=== PATIENT | male | born 1950 | race Caucasian/White ===

== ENCOUNTER 2024-06-12 13:41 | Observation (INO) ==
--- NOTE | 2024-06-12 14:17 | CT Scan Report ---
CT OF THE HEAD WITHOUT CONTRAST CLINICAL HISTORY: visual disturbance COMPARISON STUDY: No previous studies for comparison. CT DOSE: 625.8 mGy.cm TECHNIQUE: Helical axial images of the head were obtained without IV contrast. Automated exposure con trol was utilized for the study. A dose lowering technique was utilized adhering to the principles o f ALARA. FINDINGS: No acute intracranial hemorrhage, midline shift or mass effect is present. The ventricular system is unremarkable. The basal cisterns are patent. No extra-axial collections are present. There are no findings to suggest acute dural sinus thrombosis or acute territorial infarct. No significant calvarial abnormalities are present. Visualized portions of the sinuses and mastoid air cells are yamile ar. IMPRESSION: No acute intracranial findings. ACT 112: Negative or not required by law. Electronically signed by: Kamlesh Huynh M.D. 06/12/2024 2:15 PM
--- NOTE | 2024-06-12 14:29 | Emergency Department Note ---
Impression & Plan Visual disturbance, Stenosis of intracranial vessel ED Provider Note CHIEF COMPLAINT: Visual disturbance HISTORY OF PRESENTING ILLNESS: This 74-year-old male patient presents to the emergency department for evaluation of a visual disturbance. The patient was sent to the ER from his eye doctor for further imaging. The patient states that for the past 2 days he has only been able to see out of the bottom half of his left eye. He also feels like his left upper eyelid feels heavy. He has been working "round the clock" for the past 3 months. 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 He states that he works with things close to his face and has not been sleeping much recently. He has also been under a lot of stress from his relationship recently. He also thinks he may have bumped his head at one point, but denies any other known trauma. He wears different reader glasses depending on what distance he is looking, but not prescription glasses. He does not wear contacts. His pupils were dilated at the eye doctors office prior to arrival. He is not on any blood thinners. No previous strokes. He denies any trouble talking or walking. Denies any weakness of his extremities. Denies any numbness or tingling. Denies any facial droop or other neurological symptoms. However, approximately 1 year ago he felt unsteady on his feet and developed dizziness, nausea, and vomiting. However, no symptoms like that currently. Per the records from the [facility] the patient was found to have papilledema and optic nerve edema of the left eye. The patient was referred to the ER for stat CT scan/MRI to rule out any compressive lesion and they also recommended a full stroke workup with carotid ultrasound to rule out any vascular issues. The patient was also set up with the [facility] for retinal evaluation on 06/17/24. REVIEW OF SYSTEMS: See HPI for pertinent positives and pertinent negatives. ALLERGIES: NKDA MEDICATIONS: Mounjaro, Simvastatin PAST MEDICAL HISTORY: Diabetes, High Cholesterol PHYSICAL EXAM: VITALS: Vitals are noted on the nurse's note and reviewed by myself. GENERAL: No acute distress, non-diaphoretic. SKIN: No erythema, edema, or warmth of the face or eyelids. Capillary reflex less than 2 seconds. HEAD: No scalp tenderness. No step-offs felt. EARS: Bilateral external auditory canals clear. Bilateral tympanic membranes pearly campos without erythema or effusion. No hemotympanum. No asencio sign. No mastoid tenderness. EYES: Visual acuity 20/100 in the left eye and 20/70 in the right eye without correction. The patient's pupils are currently fixed and dilated from the eyedrops at the eye doctor. Extraocular movements intact without pain. No nystagmus. Conjunctivae without injection or discharge. Sclerae without icterus. NOSE: Patent, turbinates without inflammation or discharge. No sinus tenderness. No septal hematoma or bleeding. FACE: No facial bone tenderness. Full range of motion of the jaw without tenderness. No facial droop noted. However, the patient feels like his left eyelid feels heavy. MOUTH: Mucous membranes moist. Uvula midline. Airway patent. Tongue does not deviate. NECK: Supple without nuchal rigidity. Cervical spine is nontender. Full range of motion of the neck without tenderness and normal strength. HEART: Regular rate and rhythm without murmurs gallops or rubs. LUNGS: Clear to auscultation bilaterally without wheezes, rales or rhonchi. No retractions or accessory muscle use. No chest wall tenderness. ABDOMEN: Positive bowel sounds x 4. Normal tympanic percussion. Soft, nontender to palpation. No masses or hepatosplenomegaly. No guarding or rebound tenderness. No focal RLQ or LLQ tenderness. MUSCULOSKELETAL: No tenderness of the thoracic or lumbar spine or paraspinal muscles. Strength 5/5 and equal bilaterally in the upper and lower extremities. Peripheral pulses 2+ and equal in the bilateral upper and lower extremities. NEURO: Patient was alert and oriented to person place and time. Normal mental status exam. Normal sensation to light and sharp touch. Negative Romberg and pronator drift. Cerebellar function intact. No focal neurological deficits. DIFFERENTIAL DIAGNOSIS: Differential diagnosis includes conjunctivitis, trauma, corneal abrasion, hyphema, glaucoma, iritis, uveitis, corneal ulcer, dendrite, CRAO, CRVO, vitreous detachment, retinal detachment, CVA, Lyme disease, TIA, as well as other pathologies. ED COURSE AND MEDICAL DECISION MAKING: MEDICATIONS GIVEN: Aspirin 324 mg p.o. MONITOR: Continuous runner on: Order was placed for continuous runner on. Patient was placed on the runner on and continuous pulse ox. Patient was noted to be in normal sinus rhythm at an initial rate of 70 bpm per my interpretation. EKG: EKG was interpreted by myself as normal sinus rhythm at 74 bpm with no acute ST or T wave changes. INTERPRETATION OF LABS: I interpreted the labs with full lab results as below in the lab section of this note. Pertinent lab results discussed in the MDM section below. INTERPRETATION OF IMAGING: Imaging studies were interpreted by myself and read by radiology as per the imaging section of this note. CT scan of the head without contrast showed no acute intracranial findings. CTA of the neck with IV contrast showed atherosclerosis without aneurysm, dissection, high-grade stenosis, or arterial occlusion. CTA of the head with IV contrast showed moderate to severe multifocal stenoses within the intracranial vessels which are most pronounced within the left posterior inferior cerebellar artery. No large vessel occlusion. No intracranial aneurysm. EXTERNAL RECORDS REVIEWED: I reviewed the office visit notes from the [facility] as summarized above. CONSULTATIONS: Dr. Butler of neurology CRITICAL CARE: I have personally spent 60 minutes of critical care time in the direct management of this patient. This includes bedside care, interpretation of diagnostic studies, and testing, discussion with consultants, patient, and family members, and other required patient management activities. This 60 minutes is in excess of all separately billable procedures. [facility] SUMMARY: I examined the patient. The patient states that he has not had vision in the upper portion of his left eye for the past 2 days. The patient also feels like his left eyelid feels heavy, but he does not have any obvious facial droop on exam. The patient was seen by the [facility] today and found to have optic nerve swelling and papilledema. He was referred to the ER for a stat CT scan/MRI to rule out any compressive lesion as well as a full stroke workup including carotid ultrasound. An IV lock was placed and labs were drawn. The patient declined any medication for his symptoms as he stated he had no symptoms other than the vision loss. I reviewed the records from the [facility]. The patient does not have any strokelike symptoms on exam other than the vision loss. The vision loss started 2 days ago. White blood cell count normal at 7.91. Hemoglobin normal at 16.1. Platelet count normal at 186. Coags normal. Glucose 162, but CMP otherwise normal. TSH normal. High-sensitivity troponin normal. ESR and CRP were normal. CT scan of the head without contrast showed no acute intracranial findings. CTA of the neck with IV contrast showed atherosclerosis without aneurysm, dissection, high-grade stenosis, or arterial occlusion. CTA of the head with IV contrast showed moderate to severe multifocal stenoses within the intracranial vessels which are most pronounced within the left posterior inferior cerebellar artery. No large vessel occlusion. No intracranial aneurysm. I had a meaningful discussion about this patient with Dr. Echavarria who agrees with my assessment and the treatment plan. I spoke to Dr. Butler of neurology due to the abnormal CTA findings. Based on his symptoms, Dr. Butler was concern for possible branch retinal artery occlusion, ischemic optic neuropathy, or arteritis/vasculitis affecting the optic nerve. However, it appears that the patient had a retinal scan done by the eye doctor which did not appear to show a branch retinal artery occlusion. Dr. Butler recommended starting the patient on aspirin for possible strokelike event. He recommended the patient be admitted to undergo a full stroke workup along with MRI of the brain and MRI of the orbits. He also recommended getting an CRP and sed rate to evaluate for possible vasculitis/arteritis. He recommended that if the ESR/CRP were elevated, the patient should be started on high-dose steroids and have a temporal artery biopsy. However, if ESR and CRP were normal, the patient did not likely need steroids. Dr. Butler did not feel that I needed to reach out to ophthalmology urgently since the patient was seen by the [facility] prior to his arrival in the ER and the patient has an appointment with [facility] for retinal evaluation next week. I spoke with the on-call hospitalist who agreed to admit the patient for further evaluation and treatment. Please refer to their dictation for further details. The patient's care was transferred in stable condition. DIAGNOSIS: Loss of vision Stenosis within the intracranial vessels Past Med/Surg History Problem List (Updated 06/12/24 @ 19:51 by Monica Infante PA-C) Stenosis of intracranial vessel (Acute) Hypertensive urgency Visual disturbance (Acute) Medical History Type II diabetes mellitus Hyperlipidemia HTN (hypertension) Carpal tunnel syndrome, left Social History Smoking Status: Never smoker Preferred Language: Yakut Feels Safe at Home: Yes Allergies Allergies Allergy/AdvReac Type Severity Reaction Status Date / Time No Known Allergies Allergy Verified 12/18/24 14:47 Home Meds Home Medications Medication Instructions Recorded Confirmed aspirin 81 mg capsule 81 mg PO DAILY 06/12/24 06/12/24 atorvastatin 40 mg tablet 40 mg PO DAILY 06/12/24 06/12/24 sildenafil 100 mg tablet 50 mg PO DAILY PRN Erectile 06/12/24 06/12/24 Dysfunction tirzepatide 5 mg/0.5 mL 5 mg subcut .WEEKLY 06/12/24 06/12/24 subcutaneous pen injector (Nikos) Results & Data (ED) Vital Signs Vital Signs - 24 hr 06/12/24 13:49 06/12/24 17:11 Temperature 36.5 C Temperature Source Skin Pulse Rate 75 Pulse Rate [Finger] 73 Respiratory Rate 18 18 Respiratory Effort / Characteristics Non-Labored Spontaneous Respiratory Depth Normal Respiratory Pattern Regular Blood Pressure 168/88 H Blood Pressure [Left Arm] 185/102 H Blood Pressure Mean 114 Blood Pressure Mean [Left Arm] 129 Blood Pressure Position [Left Arm] Semi-fowlers Pulse Oximetry 99 98 Oxygen Delivery Method Room Air Room Air Sepsis Recent Fever Within 48 Hours No Sepsis New/Unexplained Change in Mental Status N/A Sepsis Action Taken by Nursing No Action Required Laboratory Data 06/12/24 14:39 06/12/24 14:39 Lab Results 06/12/24 Range/Units 14:39 WBC 7.91 (4.8-10.8) K/ul RBC 5.43 (4.70-6.10) M/uL Hgb 16.1 (14.0-18.0) g/dl Hct 45.6 (42.0-52.0) % MCV 84.0 (80.0-100.0) fL MCH 29.7 (25.0-34.0) pg MCHC 35.3 (32.0-36.0) g/dL RDW Std Deviation 39.1 (36.4-46.3) fL RDW Coeff of [place] 12.7 (11.5-14.5) % Plt Count 186 (130-400) K/uL MPV 9.1 L (9.4-12.4) fL Immature Gran % (Auto) 0.4 % Neut % (Auto) 58.5 % Lymph % (Auto) 31.1 % Rock % (Auto) 8.2 % Eos % (Auto) 1.5 % Baso % (Auto) 0.3 % Neut # (Auto) 4.63 (1.40-6.50) K/uL Lymph # (Auto) 2.46 (1.20-3.40) K/uL Rock # (Auto) 0.65 H (0.11-0.59) K/uL Eos # (Auto) 0.12 (0.00-0.50) K/uL Baso # (Auto) 0.02 (0.00-0.20) K/uL Immature Gran # (Auto) 0.03 (0.01-0.20) K/uL ESR 4 (0-20) mm/hr PT 10.4 (9.0-12.0) Seconds INR 1.0 (0.9-1.1) APTT 27 (21-31) Seconds PTT Ratio 1.0 Sodium 138 (136-145) mmol/L Potassium 3.9 (3.5-5.1) mmol/L Chloride 104 (98-107) mmol/L Carbon Dioxide 28 (21-32) mmol/L Anion Gap 6 (3-11) BUN 19 (6-23) mg/dl Creatinine 1.13 (0.6-1.4) mg/dl Est Cr Clr Drug Dosing 75.3 ml/min eGFR 69.06 BUN/Creatinine Ratio 16.8 (10-20) Glucose 162 H (70-99(Fasting)) mg/dl Calcium 9.0 (8.6-10.3) mg/dl Magnesium 1.8 (1.7-2.4) mg/dl Total Bilirubin 0.7 (0.2-1.0) mg/dl AST 20 (13-39) U/L ALT 18 (7-52) U/L Alkaline Phosphatase 69 (34-104) U/L Troponin I High Sens 5.7 (0-20) pg/ml C-Reactive Protein < 0.50 (0-0.5) mg/dl Total Protein 6.9 (6.0-8.3) gm/dl Albumin 4.4 (3.4-5.0) gm/dl Globulin 2.5 (2.5-4.0) gm/dl Albumin/Globulin Ratio 1.8 (0.9-2) TSH 1.882 (0.300-4.500) uIu/ml Administered Medications Discontinued Medications Amlodipine Besylate (Amlodipine Besylate 5 Mg Tab) 5 mg PO NOW ONE Stop: 06/12/24 19:17 Last Admin: 06/12/24 20:00 Dose: 5 mg Documented By: CEF Aspirin (Aspirin Chew 324 Mg) 324 mg PO NOW STA Stop: 06/12/24 17:03 Last Admin: 06/12/24 17:10 Dose: 324 mg Documented By: CEF Ioversol (Optiray 320 125ml) 115 ml IV ONCE ONE Stop: 06/12/24 15:49 Last Admin: 06/12/24 15:48 Dose: 115 ml Documented By: JAYCE Imaging Data Radiologist's Impression: Head CT 06/12/24 13:55 CT OF THE HEAD WITHOUT CONTRAST CLINICAL HISTORY: visual disturbance COMPARISON STUDY: No previous studies for comparison. CT DOSE: 625.8 mGy.cm TECHNIQUE: Helical axial images of the head were obtained without IV contrast. Automated exposure control was utilized for the study. A dose lowering technique was utilized adhering to the principles of ALARA. FINDINGS: No acute intracranial hemorrhage, midline shift or mass effect is present. The ventricular system is unremarkable. The basal cisterns are patent. No extra-axial collections are present. There are no findings to suggest acute dural sinus thrombosis or acute territorial infarct. No significant calvarial abnormalities are present. Visualized portions of the sinuses and mastoid air cells are clear. IMPRESSION: No acute intracranial findings. ACT 112: Negative or not required by law. Electronically signed by: Kamlesh Huynh M.D. 06/12/2024 2:15 PM Head CTA 06/12/24 14:47 CTA ANGIOGRAPHY OF THE HEAD CLINICAL HISTORY: Vision loss, left optic nerve swelling COMPARISON STUDY: Head CT performed earlier today. TECHNIQUE: Helical axial images of the head were obtained following uneventful intravenous administration of 115 cc of Optiray. Sagittal and coronal reconstructions were viewed as well as maximal intensity projections on an independent 3-D workstation. Automated exposure control was utilized for the study. A dose lowering technique was utilized adhering to the principles of ALARA. FINDINGS: No acute intracranial hemorrhage, midline shift or mass effect is present. Ventricular system is normal. Basal cisterns are patent. There are no extra axial collections. Moderate to severe multifocal stenoses within the intracranial circulation are present. There is moderate stenosis of the right supraclinoid ICA due to mixed calcified and noncalcified plaque. There is mild stenosis of the left supraclinoid ICA. There is moderate to severe stenosis at the origin of the left posterior cerebral artery as well as severe stenoses within the left posterior inferior cerebellar artery. Moderate stenosis of the intracranial portion of the left vertebral artery due to calcified plaque is noted. No large vessel occlusion is present. There is no intracranial aneurysm. IMPRESSION: 1. Moderate to severe multifocal stenoses within the intracranial vessels, as detailed above. These are most pronounced within the left posterior inferior cerebellar artery. 2. No large vessel occlusion. No intracranial aneurysm. ACT 112: Negative or not required by law. Electronically signed by: Kamlesh Huynh M.D. 06/12/2024 4:13 PM Neck CTA 06/12/24 14:47 CT angio neck with con CLINICAL HISTORY: 74 years-old Male with Vision loss, left optic nerve swelling. Acute stroke like symptoms with left-sided vision loss COMPARISON STUDY: Head CT of same day TECHNIQUE: Following the IV administration of 115 of Optiray, CT angiogram of the neck was performed from the aortic arch to the skull base. Images are reviewed in the axial, sagittal, and coronal planes. 3-D MIPS images are created and assessed. IV contrast was administered without complication. All measurements were calculated based on NASCET criteria. A dose lowering technique was utilized adhering to the principles of ALARA. CT DOSE: 477.86 mGy.cm FINDINGS: Three-vessel morphology with vascular arch. Patency of the innominate and imaged subclavian arteries. There is atherosclerotic plaque of the carotid bulbs causing no significant stenosis. The common and and internal carotid arteries are patent. Dominant left vertebral artery. There is atherosclerosis involving the V4 segment left vertebral artery causing moderate stenosis. The developmentally diminutive right vertebral artery is patent, also with atherosclerosis in the V4 segment causing mild stenosis. Lung apices are clear without pneumothorax. Bleb formation of the left lung apex. Atrophy of the submandibular glands. No acute fracture. 2 cm hypodense nodule of the inferior thyroid isthmus with marginal calcifications. IMPRESSION:Atherosclerosis without aneurysm, dissection, high-grade stenosis or arterial occlusion. ACT 112: Negative or not required by law. The above report was generated using voice recognition software. It may contain grammatical, syntax or spelling errors. Electronically signed by: Phoenix Post M.D. 06/12/2024 4:02 PM Discharge Plan Visit Data Chief Complaint: Visual Disturbance Stated Complaint: MRI, DOC REF, LT EYE P, VIS DISTURBANCE/TOP BLACK ED Provider: Coty Echavarria ED Midlevel Provider: Monica Infante Discharge Problem: Visual disturbance, Stenosis of intracranial vessel Patient Disposition: Admitted As Inpatient Condition: Good Discharge Instructions Interventions: ED Discharge Assessment Last Done: 06/12/24 20:01
[2024-06-12 15:07] LABS: Basophils # (auto) 0.02 K/uL (0.00-0.20); Basophils % (auto) 0.3 %; Eosinophils # (auto) 0.12 K/uL (0.00-0.50); Eosinophils % (auto) 1.5 %; Hematocrit (blood only) 45.6 % (42.0-52.0); Hemoglobin 16.1 g/dl (14.0-18.0); Immature Granulocytes # (auto) 0.03 K/uL (0.01-0.20); Immature Granulocytes % (auto) 0.4 %; Lymphocytes # (auto) 2.46 K/uL (1.20-3.40); Lymphocytes % (auto) 31.1 %; Mean Corpuscular Hemoglobin 29.7 pg (25.0-34.0); Mean Corpuscular Hgb Conc 35.3 g/dL (32.0-36.0); Mean Platelet Volume 9.1 fL (9.4-12.4); Monocytes # (auto) 0.65 K/uL (0.11-0.59); Monocytes % (auto) 8.2 %; Neutrophils # (auto) 4.63 K/uL (1.40-6.50); Neutrophils % (auto) 58.5 %; Platelet Count 186 K/uL (130-400); RDW Coefficient of Variation 12.7 % (11.5-14.5); RDW Standard Deviation 39.1 fL (36.4-46.3); Red Blood Count 5.43 M/uL (4.70-6.10); White Blood Count 7.91 K/ul (4.8-10.8)
[2024-06-12 15:17] LABS: Alanine Aminotransferase 18 U/L (7-52); Albumin Globulin Ratio 1.8 (0.9-2); Albumin Level 4.4 gm/dl (3.4-5.0); Alkaline Phosphatase 69 U/L (34-104); Anion Gap 6 (3-11); Aspartate Aminotransferase 20 U/L (13-39); BUN Creatinine Ratio 16.8 (10-20); Bilirubin,Total 0.7 mg/dl (0.2-1.0); Blood Urea Nitrogen 19 mg/dl (6-23); Carbon Dioxide 28 mmol/L (21-32); Chloride 104 mmol/L (98-107); Creatinine Clr Calc Pharmacy 75.3 ml/min; Globulin 2.5 gm/dl (2.5-4.0); Glucose 162 mg/dl (70-99(Fasting)); Magnesium 1.8 mg/dl (1.7-2.4); Potassium 3.9 mmol/L (3.5-5.1); Sodium 138 mmol/L (136-145); Total Protein 6.9 gm/dl (6.0-8.3)
[2024-06-12 15:21] LABS: Troponin I High Sensitivity 5.7 pg/ml (0-20)
[2024-06-12 15:28] LABS: Partial Thromboplastin Time 27 Seconds (21-31); Prothrombin Time 10.4 Seconds (9.0-12.0)
[2024-06-12 15:31] LABS: Thyroid Stimulating Hormone 1.882 uIu/ml (0.300-4.500)
[2024-06-12] MEDS: OPTIRAY 320 125ml IV ONE (15:48)
--- NOTE | 2024-06-12 16:03 | CT Scan Report ---
CT angio neck with con CLINICAL HISTORY: 74 years-old Male with Vision loss, left optic nerve swelling. Acute stroke like symptoms with left-sided vision loss COMPARISON STUDY: Head CT of same day TECHNIQUE: Following the IV administration of 115 of Optiray, CT angiogram of the neck was performed from the aortic arch to the skull base. Images are reviewed in the axial, sagittal, and coronal plane s. 3-D MIPS images are created and assessed. IV contrast was administered without complication. All m easurements were calculated based on NASCET criteria. A dose lowering technique was utilized adherin g to the principles of ALARA. CT DOSE: 477.86 mGy.cm FINDINGS: Three-vessel morphology with vascular arch. Patency of the innominate and imaged subclavian arteries. There is atherosclerotic plaque of the carotid bulbs causing no significant stenosis. The common and and internal carotid arteries are patent. Dominant left vertebral artery. There is atherosclerosis i nvolving the V4 segment left vertebral artery causing moderate stenosis. The developmentally diminuti ve right vertebral artery is patent, also with atherosclerosis in the V4 segment causing mild stenosi s. Lung apices are clear without pneumothorax. Bleb formation of the left lung apex. Atrophy of the subm andibular glands. No acute fracture. 2 cm hypodense nodule of the inferior thyroid isthmus with jose alejandro nal calcifications. IMPRESSION:Atherosclerosis without aneurysm, dissection, high-grade stenosis or arterial occlusion. ACT 112: Negative or not required by law. The above report was generated using voice recognition software. It may contain grammatical, syntax o r spelling errors. Electronically signed by: Phoenix Post M.D. 06/12/2024 4:02 PM
--- NOTE | 2024-06-12 16:16 | CT Scan Report ---
CTA ANGIOGRAPHY OF THE HEAD CLINICAL HISTORY: Vision loss, left optic nerve swelling COMPARISON STUDY: Head CT performed earlier today. TECHNIQUE: Helical axial images of the head were obtained following uneventful intravenous administr ation of 115 cc of Optiray. Sagittal and coronal reconstructions were viewed as well as maximal inten sity projections on an independent 3-D workstation. Automated exposure control was utilized for the study. A dose lowering technique was utilized adhering to the principles of ALARA. FINDINGS: No acute intracranial hemorrhage, midline shift or mass effect is present. Ventricular syst em is normal. Basal cisterns are patent. There are no extra axial collections. Moderate to severe mul tifocal stenoses within the intracranial circulation are present. There is moderate stenosis of the r ight supraclinoid ICA due to mixed calcified and noncalcified plaque. There is mild stenosis of the l eft supraclinoid ICA. There is moderate to severe stenosis at the origin of the left posterior cerebr al artery as well as severe stenoses within the left posterior inferior cerebellar artery. Moderate s tenosis of the intracranial portion of the left vertebral artery due to calcified plaque is noted. No large vessel occlusion is present. There is no intracranial aneurysm. IMPRESSION: 1. Moderate to severe multifocal stenoses within the intracranial vessels, as detailed above. These a re most pronounced within the left posterior inferior cerebellar artery. 2. No large vessel occlusion. No intracranial aneurysm. ACT 112: Negative or not required by law. Electronically signed by: Kamlesh Huynh M.D. 06/12/2024 4:13 PM
[2024-06-12] MEDS: ASPIRIN CHEW 324 MG PO STA (17:10)
[2024-06-12 17:19] LABS: C Reactive Protein < 0.50 mg/dl (0-0.5)
--- NOTE | 2024-06-12 17:23 | History & Physical Report ---
Date of Service June 12, 2024 Assessment & Plan (1) Visual disturbance: (2) Hypertensive urgency: Plan Quinton Day is a 74-year-old male with past medical history significant for HTN, HLD, DM type II, CKD stage III and bilateral sensorineural hearing loss who presented to the ED on 06/12/2024 via referral from [facility] in [place], [place] for further evaluation of vision loss in the superior aspect of his left eye. Visual Disturbance of Left Eye, C/F Possible Subacute CVA: Patient has been experiencing vision loss in the superior aspect of his left eye for approximately the last week or so per his account. Patient was seen at [facility] earlier today and was noted to have optic nerve edema of his left eye during his examination therefore he was referred to the ED for stat head CT as well as MRIs of both the brain and orbits to rule out any compressive lesions. It was also recommended that the patient undergo a complete stroke workup. Head CT with no evidence of acute intracranial findings. Head CTA noted moderate to severe multifocal stenoses within the intracranial vessels, most pronounced within the left posterior inferior cerebellar artery. Neck CTA revealed atherosclerotic plaque of the carotid bulbs causing no significant stenosis, atherosclerosis involving the V4 segment of the left vertebral artery causing moderate stenosis and atherosclerosis within the V4 segment of the right vertebral artery causing mild stenosis. MRIs of the brain and orbits pending. Neurology consult pending. S/p 324mg ASA in the ED which was advised to be given by the on-call [place] neurologist, Dr. Butler; also advised to continue ASA 81mg daily. No need for emergent ophthalmology consult at this time per discussion with the ED provider. Check lipid panel and Hgb A1c in AM. Resting echo pending as part of the complete str mesha workup protocol. Hypertensive Urgency: Not currently on any antihypertensives. BP elevated at 168/88 on admission, repeat BP 192/109 at 19:11. Ordered 5mg dose of po aml odipine to be given in the ED. Will start on po 5mg amlodipine daily beginning tomorrow AM. Continue close BP monitoring. May require additional antihypertensives depending on his BP trend overnight. 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 BSG checks ACHS. CC/HH diet. Most recent Hgb A1c was 7.6% about 2 months ago. Will repeat Hgb A1c in AM. Other Chronic Medical Conditions: HLD - Continue atorvastatin, ASA as per above. DVT Prophylaxis: SQ Heparin Code Status: FULL CODE PCP: Nate Crowder MD Disposition: Admit to Med/Telemetry Patient seen in collaboration with Dr. Alexandre. Please see addendum. I spent a total of 55 minutes coordinating, documenting, and providing care for this patient excluding time spent in the performance of separately billed services. This included personally reviewing all current laboratories and imaging studies, medical reconciliation, outpatient chart review and discussion with specialists. This chart was completed in part utilizing Speech Voice Recognition Software. Grammatical errors, random word insertions, pronoun errors, and incomplete sentences are an occasional consequence of this system due to software limitations, ambient noise, and hardware issues. Any formal questions or concerns about the content, text, or information contained within the body of this dictation should be directly addressed to the provider for clarification. History of Present Illness Chief Complaint: Referred by [facility]: Visual Disturbance Primary Care Provider: Nate Crowder MD Quinton Day is a 74-year-old male with past medical history significant for HTN, HLD, DM type II, CKD stage III and bilateral sensorineural hearing loss who presented to the ED on 06/12/2024 via referral from [facility] in [place], [place] for further evaluation of vision loss in the superior aspect of his left eye. History obtained from the patient, documentation provided by [facility] and associated chart review. Patient seen at bedside in the ED with Dr. Alexandre. Patient is somewhat of a poor historian. Patient has been experiencing vision loss in the superior aspect of his left eye for approximately the last week or so per his account. Patient was seen at [facility] earlier today and was noted to have optic nerve edema of his left eye during his examination therefore he was referred to the ED for stat head CT as well as MRIs of both the brain and orbits to rule out any compressive lesions. It was also recommended that the patient undergo a complete stroke workup per the head neck surgeon who saw him in the clinic, Dr. Wells. Patient reports that he typically does not wear glasses however he does use reading glasses or "cheaters" intermittently. He denies any visual disturbances in the right eye. He did notice however that his vision appeared to be somewhat blurry in both eyes during our conversation however he had just had his eyes di lated in the clinic prior to arrival. Patient actually drove himself to the ED. He reports that he has been feeling a little bit unsteady on his feet over the past month or so but otherwise offer no other acute complaints. No prior smoking history. No known history of prior strokes. Allergies Allergy/AdvReac Type Severity Reaction Status Date / Time No Known Allergies Allergy Verified 06/12/24 14:47 Home Medications Medication Instructions Recorded Confirmed Type aspirin 81 mg capsule 81 mg PO DAILY 06/12/24 06/12/24 History atorvastatin 40 mg tablet 40 mg PO DAILY 06/12/24 06/12/24 History sildenafil 100 mg tablet 50 mg PO DAILY PRN Erectile 06/12/24 06/12/24 History Dysfunction tirzepatide 5 mg/0.5 mL 5 mg subcut .WEEKLY 06/12/24 06/12/24 History subcutaneous pen injector (Papitounmaria de jesusro) Past Med/Surg History Problem List (Updated 06/12/24 @ 19:17 by Barb Nevarez PA-C) Hypertensive urgency Visual disturbance Medical History Type II diabetes mellitus Hyperlipidemia HTN (hypertension) Carpal tunnel syndrome, left Social History Smoking Status: Never smoker Preferred Language: Yemeni Feels Safe at Home: Yes Review of Systems Review of Systems: At least ten systems reviewed and negative, except as noted in the HPI. Physical Exam Physical Exam: Please refer to Dr. Alexandre's addendum for physical examination findings. Results & Data Results & Data Vital Signs (Past 12 Hours) Vital Signs Temp Pulse Pulse Resp BP BP Pulse Ox 06/12/24 17:11 73 18 185/102 H 98 06/12/24 13:49 36.5 C 75 18 168/88 H 99 O2 Del Method 06/12/24 17:11 Room Air 06/12/24 13:49 Room Air Laboratory Results Short CBC 06/12/24 Range/Units 14:39 WBC 7.91 (4.8-10.8) K/ul Hgb 16.1 (14.0-18.0) g/dl Hct 45.6 (42.0-52.0) % Plt Count 186 (130-400) K/uL BMP 06/12/24 14:39 Sodium 138 Potassium 3.9 Chloride 104 Carbon Dioxide 28 BUN 19 Creatinine 1.13 Glucose 162 H Calcium 9.0 Liver Function 06/12/24 Range/Units 14:39 Total Bilirubin 0.7 (0.2-1.0) mg/dl AST 20 (13-39) U/L ALT 18 (7-52) U/L Alkaline Phosphatase 69 (34-104) U/L Albumin 4.4 (3.4-5.0) gm/dl Diagnostic Findings Head CT 06/12/24 13:55 CT OF THE HEAD WITHOUT CONTRAST CLINICAL HISTORY: visual disturbance COMPARISON STUDY: No previous studies for comparison. CT DOSE: 625.8 mGy.cm TECHNIQUE: Helical axial images of the head were obtained without IV contrast. Automated exposure control was utilized for the study. A dose lowering technique was utilized adhering to the principles of ALARA. FINDINGS: No acute intracranial hemorrhage, midline shift or mass effect is present. The ventricular system is unremarkable. The basal cisterns are patent. No extra-axial collections are present. There are no findings to suggest acute dural sinus thrombosis or acute territorial infarct. No significant calvarial abnormalities are present. Visualized portions of the sinuses and mastoid air cells are clear. IMPRESSION: No acute intracranial findings. ACT 112: Negative or not required by law. Electronically signed by: Kamlesh Huynh M.D. 06/12/2024 2:15 PM Head CTA 06/12/24 14:47 CTA ANGIOGRAPHY OF THE HEAD CLINICAL HISTORY: Vision loss, left optic nerve swelling COMPARISON STUDY: Head CT performed earlier today. TECHNIQUE: Helical axial images of the head were obtained following uneventful intravenous administration of 115 cc of Optiray. Sagittal and coronal reconstructions were viewed as well as maximal intensity projections on an independent 3-D workstation. Automated exposure control was utilized for the study. A dose lowering technique was utilized adhering to the principles of ALARA. FINDINGS: No acute intracranial hemorrhage, midline shift or mass effect is present. Ventricular system is normal. Basal cisterns are patent. There are no extra axial collections. Moderate to severe multifocal stenoses within the intracranial circulation are present. There is moderate stenosis of the right supraclinoid ICA due to mixed calcified and noncalcified plaque. There is mild stenosis of the left supraclinoid ICA. There is moderate to severe stenosis at the origin of the left posterior cerebral artery as well as severe stenoses within the left posterior inferior cerebellar artery. Moderate stenosis of the intracranial portion of the left vertebral artery due to calcified plaque is noted. No large vessel occlusion is present. There is no intracranial aneurysm. IMPRESSION: 1. Moderate to severe multifocal stenoses within the intracranial vessels, as detailed above. These are most pronounced within the left posterior inferior cerebellar artery. 2. No large vessel occlusion. No intracranial aneurysm. ACT 112: Negative or not required by law. Electronically signed by: Kamlesh Huynh M.D. 06/12/2024 4:13 PM Neck CTA 06/12/24 14:47 CT angio neck with con CLINICAL HISTORY: 74 years-old Male with Vision loss, left optic nerve swelling. Acute stroke like symptoms with left-sided vision loss COMPARISON STUDY: Head CT of same day TECHNIQUE: Following the IV administration of 115 of Optiray, CT angiogram of the neck was performed from the aortic arch to the skull base. Images are reviewed in the axial, sagittal, and coronal planes. 3-D MIPS images are created and assessed. IV contrast was administered without complication. All measurements were calculated based on NASCET criteria. A dose lowering technique was utilized adhering to the principles of ALARA. CT DOSE: 477.86 mGy.cm FINDINGS: Three-vessel morphology with vascular arch. Patency of the innominate and imaged subclavian arteries. There is atherosclerotic plaque of the carotid bulbs causing no significant stenosis. The common and and internal carotid arteries are patent. Dominant left vertebral artery. There is atherosclerosis involving the V4 segment left vertebral artery causing moderate stenosis. The developmentally diminutive right vertebral artery is patent, also with atherosclerosis in the V4 segment causing mild stenosis. Lung apices are clear without pneumothorax. Bleb formation of the left lung apex. Atrophy of the submandibular glands. No acute fracture. 2 cm hypodense nodule of the inferior thyroid isthmus with marginal calcifications. IMPRESSION:Atherosclerosis without aneurysm, dissection, high-grade stenosis or arterial occlusion. ACT 112: Negative or not required by law. The above report was generated using voice recognition software. It may contain grammatical, syntax or spelling errors. Electronically signed by: Phoenix Post M.D. 06/12/2024 4:02 PM Medications Administered Discontinued Medications Aspirin (Aspirin Chew 324 Mg) 324 mg PO NOW STA Stop: 06/12/24 17:03 Last Admin: 06/12/24 17:10 Dose: 324 mg Documented By: CEF Ioversol (Optiray 320 125ml) 115 ml IV ONCE ONE Stop: 06/12/24 15:49 Last Admin: 06/12/24 15:48 Dose: 115 ml Documented By: JAYCE Code Status & VTE Plan Code Status FULL CODE Supervising Physician Co-Signing Physician Notes Sent in from [facility] for left sided upper visual loss over the past few days Also reports feeling some imbalance on left side On exam General: No acute distress Eyes: Pupils dilated and slowly reactive (reports he was dilated at Dr's office). Visual deficits in Upper visual field on left ENMT: External ear and nose normal, oropharynx normal Respiratory: Normal respiratory effort, no respiratory distress, lungs clear to auscultation, no crackles and no wheezes Cardiovascular: RRR S1 S2 Gastrointestinal (Abdomen): Abdomen is not distended, soft, non-tender to palpation, no guarding, no palpable hepatosplenomegaly, normal bowel sounds Musculoskeletal: No pedal edema Neurologic: Alert and oriented x 3, No deficits in power in all ext remities, sensation grossly intact Psychiatric: Euthymic affect Reviewed CT head. No acute abnormalities CTA H/N noted moderate/severe multifocal stenosis in intracranial vessels Possible CVA Get MRI brain and orbit Neurology c/s Check lipid panel, A1c, TTE I spent a total of 45 minutes coordinating, documenting and providing care for this patient excluding time spent in performance of separately billed services
--- NOTE | 2024-06-12 18:23 | Emergency Department Note ---
ED Visit Note I was consulted by the Advanced Practice Provider. I approved the management plan and take responsibility for the patient management. This includes the aspects of: -History/Physical -MDM -I independently interpreted the following studies:Studies and results .
[2024-06-12] MEDS: amLODIPine BESYLATE 5 MG TAB PO ONE (20:00)
[2024-06-12] MEDS ORDERED: ACETAMINOPHEN 325 MG TAB PO PRN (20:01)
[2024-06-12] MEDS ORDERED: ONDANSETRON INJ 2 MG/ML 2 ML VIAL IV PRN (20:01)
[2024-06-12] MEDS ORDERED: DEXTROSE 50% 50 ML SYRINGE IV PRN (20:01)
[2024-06-12] MEDS ORDERED: GLUCOSE 10 TAB/TUBE PO PRN (20:01)
[2024-06-12] MEDS ORDERED: GLUCOSE 40% GEL 15 GM TUBE PO PRN (20:01)
[2024-06-12] MEDS ORDERED: GLUCAGON FOR INJ 1 MG VIAL SQ PRN (20:01)
[2024-06-12] MEDS ORDERED: CARBOHYDRATES FOR HYPOGLYCEMIA PO PRN (20:01)
[2024-06-12] MEDS ORDERED: MAGNESIUM HYDROXIDE SUSP 30 ML UDC PO PRN (20:01)
[2024-06-12] MEDS ORDERED: POLYETHYLENE (MIRALAX) 17 GM PACK PO PRN (20:01)
[2024-06-12] MEDS: GADOBUTROL 65ML VIAL IV ONE (20:54)
[2024-06-12] MEDS: INSULIN ASPART PER UNIT CHARGE SC SCH (21:57)
[2024-06-12] MEDS: HEPARIN SOD 5,000 UNIT/0.5 ML VIAL SQ SCH (22:01)
--- NOTE | 2024-06-12 22:37 | Magnetic Resonance Report ---
Exam(s): MRI HEAD W/WO Contrast IV Amt: 10.8 CC GADAVIST EXAM: MR Head Without and With Intravenous Contrast CLINICAL HISTORY: Reason for exam: Visual disturbance. TECHNIQUE: Magnetic resonance images of the head/brain without and with intravenous contrast in multiple planes. CONTRAST: Patient received 10.8 CC GADAVIST of IV contrast COMPARISON: No relevant prior studies available. FINDINGS: Brain: Mild nonspecific white matter changes. The flow voids at the base of the brain are intact. No mass. No hemorrhage. No acute infarct. No evidence of abnormal enhancement. The dural venous sinuses are patent. Ventricles: Unremarkable. No ventriculomegaly. Bones/joints: Unremarkable. No acute fracture. Sinuses: Unremarkable as visualized. No acute sinusitis. Mastoid air cells: Unremarkable as visualized. No mastoid effusion. Orbits: Unremarkable as visualized. IMPRESSION: No evidence for acute intracranial pathology. Mild nonspecific white matter changes. Electronically signed by: Camila Cagle MD 06/12/24 22:36 PM
--- NOTE | 2024-06-12 22:53 | Magnetic Resonance Report ---
Exam(s): MRI ORBITS IV Amt: 10.8cc gadavist EXAM: MR Orbits With Intravenous Contrast CLINICAL HISTORY: Reason for exam: Visual disturbance. TECHNIQUE: Multiplanar magnetic resonance images of the orbits with intravenous contrast. CONTRAST: Patient received 10.8cc gadavist of IV contrast COMPARISON: Prior head CT from June 12, 2024.. FINDINGS: Orbits: Unremarkable. Sinuses: Chronic ethmoid sinusitis. No air-fluid levels. Bones/joints: Unremarkable. No acute fracture. Soft tissues: Unremarkable. IMPRESSION: Negative MRI of the orbits. Electronically signed by: Camila Cagle MD 06/12/24 22:52 PM
[2024-06-12] MEDS: LABETALOL HCL IV 5 MG/ML 20ML IV STA (23:22)
[2024-06-13] MEDS: SODIUM CHLORIDE 0.9% 1,000 ML IV SCH (00:24)
--- OUTSIDE RECORDS SUMMARY | 2024-06-13 03:16 | External Medical Summary | Summary of Care ---
Author Name Unknown Organization [facility] Address [address] [facility] [place] [address] Phone [phone] Care Team Providers Care Manager Pharmaceutical Name Role Phone Unavailable Primary Care Provider Unavailabl e Reason for Visit * Reason Onset Date Comments Appointment 03/20/2024 Colonoscopy Encounter Details Date Type Department Care Team (Late st Contact Info) Description 03/20/2024 Telephone Family Medicine [address] [place] [address] Edda Bush PA-C [address] [place] [address] [place] [phone] Appointment (Colonoscopy ) Allergies No known active allergiesdocumented as of this encounter (statuses as of 04/11/2024) Medications Medication Sig Dispensed Refills Start Date End Date Status ONETOUCH ULTRA TEST STRPIndications:DM type 2, goal A1c below 7 Use up to four times a day as directed 100 Strip 11 11/08/2010 Active ONETOUCH ULTRASOFT LANCETS MISCIndications:DM type 2, goal A1c below 7 Use up to four times a day as directed 1 Box 11 11/08/2010 Active aspirin 81 MG chewable tabletIndications:T ype 2 diabetes mellitus with hemoglobin A1c goal of less than 7.0% (HCC) Take 1 Tab by mouth daily. 100 Tab 1 06/15/2017 Active Atorvastatin Calcium 40 MG Oral Tablet (Lipitor)Indication s:Dyslipidemia, goal LDL below 100 take one pill by mouth at bedtime 30 Tablet 5 01/18/2022 Active Additional Information Patient not taking.Reported on 06/08/2022 Ozempic (0.25 or 0.5 MG/DOSE) 2 MG/3ML Solution Pen-injector Inject 0.5 mg under the skin once a week. Active Sildenafil Citrate 100 MG Oral Tablet (Viagra)Indications :Erectile dysfunction, unspecified erectile dysfunction type Take half tablet by mouth 10 Tablet 5 03/20/2024 Active documented as of this encounter (statuses as of 04/11/2024) Active Problems Problem Noted Date Diagnosed Date Stage 3a chronic kidney disease 09/15/2020 Overview: EGFR 56.1 H/O dysplastic nevus 06/15/2020 Overview: Mildly atypical nevus (R upper back) Primary hypertension 02/13/2012 Overview: Per HTN Protocol #27. DYSLIPIDEMIA, GOAL LDL BELOW 100 06/02/2009 Overview: Per Lipid Taxonomy. chol 212, hdl 38, ldl 153, trig 106 Type 2 diabetes mellitus wit h hemoglobin A1c goal of less than 7.0% 04/23/2009 Overview: Per Diabetes Taxonomy. random sugar 396 ICD-10 update of inactive term ADVANCE DIRECTIVE INFORMATION 08/28/2006 Overview: No, Advance Directive brochure offered , patient declined. Sensorineural hearing loss, bilateral BMI 37.0-37.9, adult documented as of this encounter (statuses as of 04/11/2024) Resolved Problems Problem Noted Date Diagnosed Date Resolved Date Carpal tunnel syndrome of right wrist 04/01/2013 06/15/2017 Overview: moderately severe on EMG HTN, goal below 130/80 11/09/201002/15 Overview: Per HTN Protocol #27. Severe obesity with body mas s index (BMI) of 35.0 to 39.9 with serious comorbidity 09/21/2009 Overview: Per Obesity Taxonomy ICD-10 update of inactive diagnosis Mixed dyslipidemia 07/07/2006 9 Overview: Per Lipid Taxonomy. chol 212, hdl 38, ldl 153, trig 106 Type 2 diabetes mellitus wit h hemoglobin A1c goal of less than 7.0% 05/12/2006 04/23/2009 Overview: Per Diabetes Taxonomy. random sugar 396 ICD-10 update of inactive term Disorder of pancreas 012 Overview: pancreatitis Obesity, BMI not known 09/21 Overview: Per Obesity Taxonomy Metabolic syndrome 9 Carpal tunnel syndrome 06/15 Overview: right wrist Adult body mass index 37.0-37.9 08/26/2015 Overview: ICD-10 update of inactive term Tear of medial cartilage or meniscus of knee, current 10/15/2013 Dupuytren's contracture of both hands 01/18/2022 documented as of this encounter (statuses as of 04/11/2024) Immunizations Name Administration Dates Next Due COVID-19, MRNA-LNP, 24-25, P R, 30MCG/0.3ML, IM, 12YRS AND ABOVE (Pfizer-Comirnaty) 03/20/2024 Pneumococcal Conjugate Vacc, 13 Valent (Prevnar) 06/15/2017 Pneumococcal Polysaccharide PPV23 (Pneumovax) 03/06/2019,07/07/2006 Seasonal Influenza Vac., MDV , IM, 0.5 mL (Fluzone) 04/29/2014,04/26/2012,04/09/2011,04/22 Seasonal Influenza, High Dos e, Trivalent, PF, IM (Fluzone HD) 03/20/2024 Seasonal Influenza, MDCK, Tr ivalent, PF, (Flucelvax) 07/03/2013 Seasonal Influenza, PF, 6 M & above, IM , (FluLaval or Fluzone) 03/06/2019,06/15/2017 Seasonal Influenza, Quadriva lent, No Preserve, IM 04/27/2016 TDAP, Age 7 and older, IM (Adacel) 12/05/2007 Varicella Zoster Vaccine (Adult) 02/26/2013 documented as of this encounter Social History Tobacco Use Types Packs/Day Years Used Date Smoking Tobacco: Never Smokeless Tobacco: Current Chew, Snuff Comments:chew, never smoked Alcohol Use Standard Drinks/Week Comments No 0 (1 standard drink = 0.6 oz pur e alcohol) PHQ-2 Answer Date Recorded PHQ-2 Score -1 03/17/2020 Utilities Answer Date Recorded Do you have trouble paying y our heating, water, or electric bill? (Adult - for ages 18 years and over) Not on file 12/12/2023 Is your family able to pay t he heat, water, or electric bill? (Household - for ages 0-17 years) Not on file 12/12/2023 Does your family have access to good internet? (Household - for ages 0-17 years) Not on file 12/12/2023 Social Connections Answer Date Recorded How often do you feel lonely or isolated from those around you? (Adult - for ages 18 years and over) Not on file 12/12/2023 Sex and Gender Information Value Date Recorded Sex Assigned at Not on file Gender Identity Not on file Sexual Orientation Not on file Job Start Date Occupation Industry Not on file Not on file Not on file documented as of this encounter Miscellaneous Notes * Telephone Encounter - Kimberly Orr OSA - 04/11/2024 10:38 AM EDT Unable to lm Letter sent WILI Self 04/11/2024 10:40 AM * Telephone Encounter - Kimberly Orr OSA - 03/27/2024 12:59 PM EDT Unable to lm WILI Self 03/27/2024 1:00 PM * Telephone Encounter - Shannon Rivera OSA - 03/20/2024 11:18 AM EDT Tariq martinez scheduled for colonoscopy for: Screen for colon cancer [Z12.11] documented in this encounter Plan of Treatment Scheduled Procedures Name Priority Associated Diagnoses Date/Ti me COLONOSCOPY FLEXIBLE PROXIMAL DIAGNOSTIC Recall History of colon polyps Health Maintenance Due Date Last Done Comments Cologuard 1997 Sigmoidoscopy 1997 Fecal Occult Blood Test 08/28/2011 08/27/2010, 02/24 Zoster Vaccines (2 of 3) 04/23/2013 02/26/2013 DTap/Tdap Vaccines (2 - Td or Tdap) 12/04/2017 12/05/2007 Depression Screening 03/17/2021 03/17/2020 Diabetic Eye Exam 01/18/2023 01/18/2022, , 11/15/2016, Additional history exists Diabetic Foot Exam 01/18/2023 01/18/2022, 0 09/15/2020, 03/06/2019, Additional history exists Colonoscopy 06/10/2023 06/10/2022, 06/10/2022 Colorectal Cancer Screening 06/10/2023 GFR 09/17/2024 03/20/2024, 08/25, 04/27/2022, Additional history exists HbA1c 09/17/2024 03/20/2024, 042 10/2023, 09/12/2022, Additional history exists Albumin/Creatinine Ratio 03/20/2025 024, 07/21/2021, 09/15/2020, Additional history exists CKD HGB USE SMARTSET 16555 03/20/202503/20, 03/20/2024, 07/21/2021, Additional history exists CKD PHOS USE SMARTSET 14651 03/20/2025 03/20/2024, 0 07/21/2021 Lipid Panel 03/20/2029 03/20/2024, 06/27, 06/15/2017, Additional history exists Pneumococcal Vaccine: 65+ Years Completed 03/06/2019, 06/15/2017, 07/07/2006 RETIRED - COLONOSCOPY-ANNUAL AGES 18-100 Discontinued 06/10/2022, 06/10/2022 COVID-19 Vaccine Completed 03/20/2024 Influenza Vaccine (FLU shot) Completed 03/20/2024, 03/06/2019, 06/15/2017, Additional history exists HPV (Gardasil) Vaccine Aged Out No lo nger eligible based on patient's age to complete this topic Hepatitis B Vaccine Aged Out No longe r eligible based on patient's age to complete this topic MENINGOCOCCAL (MENACTRA/MENVEO) Aged Out No longer eligible based on patient's age to complete this topic documented as of this encounter Medical Devices Not on filedocumented as of this encounter
--- OUTSIDE RECORDS SUMMARY | 2024-06-13 03:16 | External Medical Summary | Summary of Care ---
Author Name Unknown Organization [facility] Address [address] [facility] [address] Phone [phone] Care Team Providers Care Six Horse Hitch Driver Name Role Phone Unavailable Primary Care Provider Unavailabl e Reason for Visit * Reason Onset Date Comments Medical Records Request 05/07/[address] [facility] Encounter Details Date Type Department Care Team (Late st Contact Info) Description 05/07/2024 Telephone Family Medicine [address] [place] [address] Edda Bush PA-C [address] [place] [address] [place] [phone] Medical Records Request ([facility] ... Allergies No known active allergiesdocumented as of this encounter (statuses as of 05/07/2024) Medications ONETOUCH ULTRA TEST STRPIndications: DM type 2, goal A1c below 7 Use up to four times a day as directed 100 Strip 11 1 Active ONETOUCH ULTRASOFT LANCETS MISCIndications: DM type 2, goal A1c below 7 Use up to four times a day as directed 1 Box 11 1 Active aspirin 81 MG chewable tabletIndication s:Type 2 diabetes mellitus with hemoglobin A1c goal of less than 7.0% (HCC) Take 1 Tab by mouth daily. 100 Tab 1 7 Active Atorvastatin Calcium 40 MG Oral Tablet (Lipitor)Indicat ions:Dyslipidemi a, goal LDL below 100 take one pill by mouth at bedtime 30 Tablet 5 2 Active Additional Information Patient not taking.Reported on 06/08/2022 Ozempic (0.25 or 0.5 MG/DOSE) 2 MG/3ML Solution Pen-injector Inject 0.5 mg under the skin once a week. Active Sildenafil Citrate 100 MG Oral Tablet (Viagra)Indicati ons:Erectile dysfunction, unspecified erectile dysfunction type Take half tablet by mouth 10 Tablet 5 4 Active Meloxicam 15 MG Oral Tablet (Mobic)Indicatio ns:Chronic bilateral low back pain without sciatica Take 1 Tablet by mouth in the morning. for pain.. 30 Tablet 5 4 Active documented as of this encounter (statuses as of 05/07/2024) Active Problems Problem Noted Date Diagnosed Date Stage 3a chronic kidney disease 09/15/2020 Overview (09/15/2020): EGFR 56.1 H/O dysplastic nevus 06/15/2020 Overview (06/15/2020): Mildly atypical nevus (R upper back) Primary hypertension 02/13/2012 Overview: Per HTN Protocol #27. DYSLIPIDEMIA, GOAL LDL BELOW 100 06/02/2009 Overview (06/02/2009): Per Lipid Taxonomy. chol 212, hdl 38, ldl 153, trig 106 Type 2 diabetes mellitus wit h hemoglobin A1c goal of less than 7.0% 04/23/2009 Overview (10/20/2015): Per Diabetes Taxonomy. random sugar 396 ICD-10 update of inactive term Sensorineural hearing loss, bilateral BMI 37.0-37.9, adult documented as of this encounter (statuses as of 05/07/2024) Resolved Problems Problem Noted Date Diagnosed Date Resolved Date Carpal tunnel syndrome of right wrist 04/01/2013 06/15/2017 Overview (04/04/2013): moderately severe on EMG HTN, goal below 130/80 11/09/201002/15 Overview: Per HTN Protocol #27. Severe obesity with body mas s index (BMI) of 35.0 to 39.9 with serious comorbidity 09/21/2009 Overview (04/11/2018): Per Obesity Taxonomy ICD-10 update of inactive diagnosis ADVANCE DIRECTIVE INFORMATION 08/28/2006 04/29/2024 Overview (08/28/2006): No, Advance Directive brochure offered , patient declined. Mixed dyslipidemia 07/07/2006 9 Overview (06/02/2009): Per Lipid Taxonomy. chol 212, hdl 38, ldl 153, trig 106 Type 2 diabetes mellitus wit h hemoglobin A1c goal of less than 7.0% 05/12/2006 04/23/2009 Overview (10/20/2015): Per Diabetes Taxonomy. random sugar 396 ICD-10 update of inactive term Disorder of pancreas 012 Overview (07/10/2006): pancreatitis Obesity, BMI not known 09/21 Overview (09/21/2009): Per Obesity Taxonomy Metabolic syndrome 9 Carpal tunnel syndrome 06/15 Overview (08/11/2008): right wrist Adult body mass index 37.0-37.9 08/26/2015 Overview (10/06/2015): ICD-10 update of inactive term Tear of medial cartilage or meniscus of knee, current 10/15/2013 Dupuytren's contracture of both hands 01/18/2022 documented as of this encounter (statuses as of 05/07/2024) Immunizations Name Administration Dates Next Due COVID-19, MRNA-LNP, PF, 30 M CG/0.3 mL, 12 YRS AND ABOVE, IM (PFIZER-Comirnaty) 03/20/2024 Pneumococcal Conjugate Vacc, 13 Valent (Prevnar) [...] Answer Date Recorded PHQ-2 Score -1 03/17/2020 Sex and Gender Information Value Date Recorded Sex Assigned at Not on file Legal Sex Male 5:26 AM EST Gender Identity Not on file Sexual Orientation Not on file Occupation Industry Job Start Date Job End Date Not on file Not on file Not on file Not on file documented as of this encounter Miscellaneous Notes * Telephone Encounter - Javed Eisenberg OSA - 05/07/2024 10:03 AM EST Recd request for records 05/07/24 from [facility]. Auth was sent to HIM 16-33on 05/07/24. To check status of records please call HIM directly at [phone]. documented in this encounter Plan of Treatment [...] Additional history exists CKD HGB USE SMARTSET 89442 03/20/202503/20, 03/20/2024, 07/21/2021, Additional history exists CKD PHOS USE SMARTSET 13013 03/20/2025 03/20/2024, 0 07/21/2021 Lipid Panel 03/20/2029 [...]
--- OUTSIDE RECORDS SUMMARY | 2024-06-13 03:16 | External Medical Summary | Summary of Care ---
Author Name Unknown Organization [facility] Address [address] [facility] [place] [address] Phone [phone] Care Team Providers Care Parcel Post Clerk Name Role Phone Unavailable Primary Care Provider Unavailabl e Reason for Visit * Reason Comments Outpatient Testing Encounter Details Date Type Department Care Team (Late st Contact Info) Description 03/20/2024 10:20 AM EDT Laboratory Laboratory [address] [place] [phone] [place] [address] Type 2 diabetes mellitus with hemoglobin A1c goal of less than 7.0% (HCC); DYSLIPIDEMIA, GOAL LDL BELOW 100 Allergies No known active allergiesdocumented as of this encounter (statuses as of 03/20/2024) Medications Medication Sig Dispensed Refills Start Date [...] as of this encounter (statuses as of 03/20/2024) Active Problems Problem Noted Date Diagnosed Date [...] as of this encounter (statuses as of 03/20/2024) Resolved Problems Problem Noted Date Diagnosed Date [...] as of this encounter (statuses as of 03/20/2024) Immunizations Name Administration Dates Next Due COVID-19, MRNA-LNP, 24-25, P R, 30MCG/0.3ML, IM, 12YRS AND ABOVE (Pfizer-Comirnaty) 03/20/2024 Pneumococcal Conjugate Vacc, 13 Valent (Prevnar) 06/15/2017 Pneumococcal Polysaccharide PPV23 (Pneumovax) 03/06/2019,07/07/2006 Seasonal Influenza, High Dos e, Trivalent, PF, IM (Fluzone HD) 03/20/2024 Seasonal Influenza, MDCK, Tr ivalent, PF, (Flucelvax) 07/03/2013 Seasonal Influenza, PF, 6 M & above, IM , (FluLaval or Fluzone) 03/06/2019,06/15/2017 Seasonal Influenza, Quadriva lent, No Preserve, IM 04/27/2016 Seasonal Influenza, Trivalen t, (IIV3), with Preserv, (Fluzone) 04/29/2014,04/26/2012,04/09/2011,04/22 TDAP, Age 7 and older, IM (Adacel) [...] on file documented as of this encounter Plan of Treatment Pending Results Name Type Priority Associated Diagnoses Date /Time HEMOGLOBIN A1C Lab Routine Type 2 diabetes mellitus with hemoglobin A1c goal of less than 7.0% ([facility]) 03/20/2024 11:12 AM EDT LIPID PANEL WITH DIRECT LDL IF TG IS HIGH Lab Routine DYSLIPIDEMIA, GOAL LDL BELOW 100 03/20/2024 11:12 AM EDT BASIC METABOLIC PANEL Lab Routine Type 2 diabetes mellitus with hemoglobin A1c goal of less than 7.0% ([facility]) 03/20/2024 11:12 AM EDT CBC WITH WBC DIFFERENTIAL AND ANEMIA REFLEX WORKUP Lab Routine Type 2 diabetes mellitus with hemoglobin A1c goal of less than 7.0% ([facility]) 03/20/2024 11:12 AM EDT ALBUMIN / CREATININE RATIO, URINE Lab Routine Type 2 diabetes mellitus with hemoglobin A1c goal of less than 7.0% ([facility]) 03/20/2024 11:12 AM EDT PHOSPHORUS Lab Routine Type 2 diabetes mellitus with hemoglobin A1c goal of less than 7.0% ([facility]) 03/20/2024 11:12 AM EDT ANEMIA CBC Lab Routine Type 2 diabetes mellitus with hemoglobin A1c goal of less than 7.0% ([facility]) 03/20/2024 11:12 AM EDT DIFFERENTIAL, AUTOMATED Lab Routine Type 2 diabetes mellitus with hemoglobin A1c goal of less than 7.0% ([facility]) 03/20/2024 11:12 AM EDT ANEMIA REFLEX CHEMISTRY HOLD Lab Routine Type 2 diabetes mellitus with hemoglobin A1c goal of less than 7.0% ([facility]) 03/20/2024 11:12 AM EDT Scheduled Procedures Name Priority Associated Diagnoses Date/Ti me COLONOSCOPY FLEXIBLE PROXIMAL DIAGNOSTIC Recall History of colon polyps Health Maintenance Due Date Last Done Comments Cologuard 1997 Sigmoidoscopy 1997 Fecal Occult Blood Test 08/28/2011 08/27/2010, 02/24 Zoster Vaccines (2 of 3) 04/23/2013 02/26/2013 DTap/Tdap Vaccines (2 - Td or Tdap) 12/04/2017 12/05/2007 Depression Screening 03/17/2021 03/17/2020 Albumin/Creatinine Ratio 07/21/2022 022, 09/15/2020, 04/27/2016, Additional history exists CKD HGB USE SMARTSET 50857 07/21/202207/21, 08/14/2010, 07/08/2006 CKD PHOS USE SMARTSET 02436 07/21/2022 07/21/2021 Diabetic Eye Exam 01/18/2023 01/18/2022, , 11/15/2016, Additional history exists Diabetic Foot Exam 01/18/2023 01/18/2022, 0 09/15/2020, 03/06/2019, Additional history exists GFR 03/15/2023 09/12/2022, 11/07/2021, 01/14/2022, Additional history exists Colonoscopy 06/10/2023 06/10/2022, 06/10/2022 Colorectal Cancer Screening 06/10/2023 HbA1c 04/19/2024 10/19/2023, 08/25, 04/27/2022, Additional history exists Lipid Panel 07/21/2026 07/21/2021, 05/27, 04/27/2016, Additional history exists Pneumococcal Vaccine: 65+ Years [...] Not on filedocumented as of this encounter Visit Diagnoses Diagnosis Type 2 diabetes mellitus with hemoglobin A1c goal of less than 7.0% (HCC) DYSLIPIDEMIA, GOAL LDL BELOW 100 Other and unspecified hyperlipidemia documented in this encounter
--- OUTSIDE RECORDS SUMMARY | 2024-06-13 03:16 | External Medical Summary | Summary of Care ---
Author Name Unknown Organization [facility] Address [address] [facility] [place] [address] Phone [phone] Care Team Providers Care Analytics Lead Name Role Phone Unavailable Primary Care Provider Unavailabl e Reason for Visit * Reason Onset Date Comments Advice 04/25/2024 Back issues Encounter Details Date Type Department Care Team (Late st Contact Info) Description 04/25/2024 Telephone Family Medicine [address] [phone] Edda Bush PA-C [address] [place] [address] [place] [phone] Advice (Back issues) Allergies No known active allergiesdocumented as of this encounter (statuses as of 04/25/2024) Medications Medication Sig Dispensed Refills Start Date [...] by mouth 10 Tablet 5 03/20/2024 Active Meloxicam 15 MG Oral Tablet (Mobic)Indications: Chronic bilateral low back pain without sciatica Take 1 Tablet by mouth in the morning. for pain.. 30 Tablet 5 04/25/2024 Active documented as of this encounter (statuses as of 04/25/2024) Active Problems Problem Noted Date Diagnosed Date [...] as of this encounter (statuses as of 04/25/2024) Resolved Problems Problem Noted Date Diagnosed Date [...] as of this encounter (statuses as of 04/25/2024) Immunizations Name Administration Dates Next Due COVID-19, [...] encounter Miscellaneous Notes * Telephone Encounter - Edda Bianchi CMA - 04/25/2024 3:43 PM EDT Patient aware. * Telephone Encounter - Edad Bush PA-C - 04/25/2024 1:42 PM EDT Pt can try meloxicam as needed for the back pain. * Telephone Encounter - Carmen Wadsworth OSA - 04/25/2024 1:26 PM EDT Patient stopped in the office and wanted to let Edda know that he is having issues with his back. Said He was told that if he had problems to call and he could get something for his problem. Also said he was going out of town and needs called back [facility]. [phone] documented in this encounter Plan of Treatment [...] 06/10/2023 06/10/2022, 06/10/2022 Colorectal Cancer Screening 06/10/2023 COVID-19 Vaccine ( season) 2024 03/20/2024 GFR 09/17/2024 03/20/2024, 08/25, 04/27/2022, Additional history exists HbA1c 09/17/2024 03/20/2024, 04/2 10/2023, 09/12/2022, Additional history exists Albumin/Creatinine Ratio 03/20/2025 024, 07/21/2021, 09/15/2020, Additional history exists CKD HGB USE SMARTSET 32347 03/20/202503/20, 03/20/2024, 07/21/2021, Additional history exists CKD PHOS USE SMARTSET 84092 03/20/2025 03/20/2024, 0 07/21/2021 Lipid Panel 03/20/2029 03/20/2024, 06/27, 06/15/2017, Additional history exists Pneumococcal Vaccine: 65+ Years Completed 03/06/2019, 06/15/2017, 07/07/2006 RETIRED - COLONOSCOPY-ANNUAL AGES 18-100 Discontinued 06/10/2022, 06/10/2022 Influenza Vaccine (FLU shot) Completed 03/20/2024, 03/06/2019, [...] as of this encounter Visit Diagnoses Diagnosis Chronic bilateral low back pain without sciatica- Primary Screen for colon cancer Special screening for malignant neoplasms, colon documented in this encounter
--- OUTSIDE RECORDS SUMMARY | 2024-06-13 03:16 | External Medical Summary | Summary of Care ---
Author Name Unknown Organization [facility] Address [address] [facility] [place] [address] Phone [phone] Care Team Providers Care Roller Mill Operator Name Role Phone Unavailable Primary Care Provider Unavailabl e Reason for Visit * Reason Onset Date Comments Appointment 03/20/2024 Colonoscopy Encounter Details Date Type Department Care Team (Late st Contact Info) Description 03/20/2024 Telephone Family Medicine [address] [place] [address] Edda Bush PA-C [address] [place] [address] [place] [phone] Appointment (Colonoscopy ) Allergies No known active allergiesdocumented as of this encounter (statuses as of 03/27/2024) Medications Medication Sig Dispensed Refills Start Date [...] as of this encounter (statuses as of 03/27/2024) Active Problems Problem Noted Date Diagnosed Date [...] as of this encounter (statuses as of 03/27/2024) Resolved Problems Problem Noted Date Diagnosed Date [...] as of this encounter (statuses as of 03/27/2024) Immunizations Name Administration Dates Next Due COVID-19, [...] Additional history exists CKD HGB USE SMARTSET 08146 03/20/202503/20, 03/20/2024, 07/21/2021, Additional history exists CKD PHOS USE SMARTSET 22474 03/20/2025 03/20/2024, 0 07/21/2021 Lipid Panel 03/20/2029 [...]
--- OUTSIDE RECORDS SUMMARY | 2024-06-13 03:16 | External Medical Summary | Summary of Care ---
Author Name Unknown Organization [facility] Address [address] [facility] [place] [address] Phone [phone] Care Team Providers Care Commercial Loan Specialist Name Role Phone Unavailable Primary Care Provider Unavailabl e Reason for Visit * Reason Onset Date Comments Appointment 03/20/2024 Colonoscopy Encounter Details Date Type Department Care Team (Late st Contact Info) Description 03/20/2024 Telephone Family Medicine [address] [place] [address] Edda Bush PA-C [address] [place] [address] [place] [phone] Appointment (Colonoscopy ) Allergies No known active [...] encounter Miscellaneous Notes * Telephone Encounter - Shannon Rivera OSA [...] Additional history exists CKD HGB USE SMARTSET 89900 07/21/202207/21, 08/14/2010, 07/08/2006 CKD PHOS USE SMARTSET 09426 07/21/2022 07/21/2021 Diabetic Eye Exam 01/18/2023 01/18/2022, , 11/15/2016, Additional history exists Diabetic Foot Exam 01/18/2023 01/18/2022, 0 09/15/2020, 03/06/2019, Additional history exists GFR 03/15/2023 09/12/2022, 11/0 07/2021, 01/14/2022, Additional history exists Colonoscopy 06/10/2023 06/10/2022, [...]
--- OUTSIDE RECORDS SUMMARY | 2024-06-13 03:16 | External Medical Summary | Summary of Care ---
Author Name Unknown Organization [facility] Address [address] [facility] [place] [address] Phone [phone] Care Team Providers Care Director Translational Name Role Phone Unavailable Primary Care Provider Unavailabl e Reason for Visit * Reason Comments Outpatient Testing Encounter Details Date Type Department Care Team (Late st Contact Info) Description 03/20/2024 10:20 AM EDT Laboratory Laboratory [address] [place] [phone] [place] [address] Type 2 diabetes mellitus with hemoglobin A1c [...] hemoglobin A1c goal of less than 7.0% ([facility]) 03/20/2024 11:12 AM EDT LIPID PANEL WITH DIRECT LDL IF TG IS HIGH Lab Routine DYSLIPIDEMIA, GOAL LDL BELOW 100 03/20/2024 11:12 AM EDT BASIC METABOLIC PANEL Lab Routine Type 2 diabetes mellitus with hemoglobin A1c goal of less than 7.0% ([facility]) 03/20/2024 11:12 AM EDT CBC WITH WBC DIFFERENTIAL AND ANEMIA REFLEX WORKUP Lab Routine Type 2 diabetes mellitus with hemoglobin A1c goal of less than 7.0% ([facility]) 03/20/2024 11:12 AM EDT ALBUMIN / CREATININE RATIO, URINE Lab Routine Type 2 diabetes mellitus with hemoglobin A1c goal of less than 7.0% ([facility]) 03/20/2024 11:12 AM EDT PHOSPHORUS Lab Routine Type 2 diabetes mellitus with hemoglobin A1c goal of less than 7.0% ([facility]) 03/20/2024 11:12 AM EDT ANEMIA CBC Lab Routine Type 2 diabetes mellitus with hemoglobin A1c goal of less than 7.0% ([facility]) 03/20/2024 11:12 AM EDT DIFFERENTIAL, AUTOMATED Lab Routine Type 2 diabetes mellitus with hemoglobin A1c goal of less than 7.0% ([facility]) 03/20/2024 11:12 AM EDT ANEMIA REFLEX CHEMISTRY HOLD Lab Routine Type 2 diabetes mellitus with hemoglobin A1c goal of less than 7.0% ([facility]) 03/20/2024 11:12 AM EDT Scheduled Procedures [...] Additional history exists CKD HGB USE SMARTSET 34162 07/21/202207/21, 08/14/2010, 07/08/2006 CKD PHOS USE SMARTSET 22067 07/21/2022 07/21/2021 Diabetic Eye Exam 01/18/2023 01/18/2022, [...]
--- OUTSIDE RECORDS SUMMARY | 2024-06-13 03:17 | External Medical Summary ---
Author Name Unknown Address Unknown Organization K01:[facility] [place] [address] [facility] [address] Laboratory Report Ordering Provider Test Date Status LETY GREENBERG 03/20/2024 11:12:57 Final Observation Date Value Abnormality Reference (Units ) Status HbA1C 03/20/2024 11:12:57 7.6 Above high normal 4. 0-5.6 (%) Final The use of HbA1c to monitor glycemic status is based on normal hemoglobin and HbA composition. This test should not be used in patients with abnormal hemoglobin that affects the half life of the red blood cell or the in vivo glycation rates. Glucose, estimated average 03/20/2024 11:12:57 171 Above high normal <126 (mg/dL) Tony riggs Performing Location [facility] [place] [address] [facility] [facility] [address]
--- OUTSIDE RECORDS SUMMARY | 2024-06-13 03:17 | External Medical Summary | Summary of Care ---
Author Name Unknown Organization [facility] Address [address] [facility] [place] [address] Phone [phone] Care Team Providers Care Legal Manager Name Role Phone Unavailable Primary Care Provider Unavailabl e Reason for Referral * Ancillary Services (Within 10 days (routine)) - Pending Review Specialty Diagnoses / Procedures Referred By Tk kimbrough Referred To Contact Gastroenterology Diagnoses Screen for colon cancer Edda Bush PA-C [address] [place] [address] [place] [address] Referral ID Status Reason Start Date Expiration Date Visits Requested Visits Authorized [id number] Pending Review Ancillary Services Required 03/20/[phone] Question Answer Referral Priority Within 10 days (routine) Where should this appointment be scheduled? Julia Comments ALERT: Do not order for pediatric patients (18 years or younger). Cancel off screen and order PEDS GASTROENTEROLOGY CONSULT (Type: 1 visit only-Evaluate and Treat) The following Pt. Instructions are available: - Gastro Colonoscopy Prep Instructions [[id number]] - Gastro Colonoscopy Prep Instructions (Estonian Version) [[id number]] Go to the Pt. Instructions section within the Visit Navigator to access. Colonoscopy ASGE Guidelines: Average risk screening (begin at age 50, 10 year intervals) ADDITIONAL INFORMATION 1. Is the patient on Coumadin? No 2. Is the patient on Pradaxa? No Reason for Visit * Reason Onset Date Comments Re-Check Medication Administration 03/20/2024 Flu an d/or Pneumo Inj Encounter Details Date Type Department Care Team ([facility] st Contact Info) Description 03/20/2024 9:40 AM EDT Office Visit Family [address] [place] [phone] Edda Bush PA-C [address] [place] [address] [place] [address] Type 2 diabetes mellitus with hemoglobin A1c goal of less than 7.0% (HCC)*; Need for prophylactic vaccination and inoculation against influenza; Stage 3a chronic kidney disease (HCC); DYSLIPIDEMIA, GOAL LDL BELOW 100; Primary hypertension; Sensorineural hearing loss, bilateral; Screen for colon cancer; Chronic bilateral low back pain without sciatica; Encounter for screening for stenosis of carotid artery; Erectile dysfunction, unspecified erectile dysfunction type Allergies No known active allergiesdocumented as of this encounter (statuses as of 03/20/2024) Medications Medication Sig Dispensed Refills Start Date End Date Status ONETOUCH ULTRA TEST STRPIndications:D M type 2, goal A1c below 7 Use up to four times a day as directed 100 Strip 11 11/08/2010 Active ONETOUCH ULTRASOFT LANCETS MISCIndications:D M type 2, goal A1c below 7 Use up to four times a day as directed 1 Box 11 11/08/2010 Active aspirin 81 MG chewable tabletIndications :Type 2 diabetes mellitus with hemoglobin A1c goal of less than 7.0% (HCC) Take 1 Tab by mouth daily. 100 Tab 1 06/15/2017 Active Atorvastatin Calcium 40 MG Oral Tablet (Lipitor)Indicati ons:Dyslipidemia, goal LDL below 100 take one pill by mouth at bedtime 30 Tablet 5 01/18/2022 Active Additional Information Patient not taking.Reported on 06/08/2022 Ozempic (0.25 or 0.5 MG/DOSE) 2 MG/3ML Solution Pen-injector Inject 0.5 mg under the skin once a week. Active Sildenafil Citrate 100 MG Oral Tablet (Viagra)Indicatio ns:Erectile dysfunction, unspecified erectile dysfunction type Take half tablet by mouth 10 Tablet 5 03/20/2024 Active metFORMIN HCl 1000 MG Oral Tablet (Glucophage)Indic ations:Type 2 diabetes mellitus with hemoglobin A1c goal of less than 7.0% (HCC) Take by mouth 1 Tablet in the morning AND 1 Tablet before bedtime. 60 Tablet 5 01/18/2022 4 Discontinued Dexcom G6 SensorIndications :Type 2 diabetes mellitus with hemoglobin A1c goal of less than 7.0% (HCC) Use as directed. Use with dexcom g6 system Dxe11.9 3 Each 2 05/23/2022 4 Discontinued Jardiance 10 MG Oral Tablet (Empagliflozin)In dications:Type 2 diabetes mellitus with hemoglobin A1c goal of less than 7.0% (HCC) Take ONE TABLET by mouth in the morning. 90 Tablet 1 11/28/2022 4 Discontinued documented as of this encounter (statuses as [...] on file documented as of this encounter Last Filed Vital Signs Vital Sign Reading Time Taken Comments Blood Pressure 132/78 03/20/2024 9:36 AM EDT Pulse 68 03/20/2024 9:36 AM EDT Temperature 36.3 C (97.4 F) 03/20/2024 9:36 AM ED T Respiratory Rate - - Oxygen Saturation 96% 03/20/2024 9:36 AM EDT Inhaled Oxygen Concentration - - Weight 107.5 kg (237 lb) 03/20/2024 9:36 AM EDT Height 182.9 cm (6') 03/20/2024 9:36 AM EDT Body Mass Index 32.14 03/20/2024 9:36 AM EDT documented in this encounter Progress Notes * Edda Bush PA-C - 03/20/2024 9:46 AM EDT Nursing Notes: Italia Mckinnon, DOPE MAINTENANCE WORKER 03/20/24 0944 Signed Discuss diabetes- "get back on track with everything & one place" Is currently on Ozempic but supposed to be on Monjuaro? 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 Discuss cholesterol. Not taking meds. Colonoscopy? Discuss vaccines (shingles & TDAP will need to be done at pharmacy) Pt here today for recheck. Pt hasn't been seen for a while. Pt with PMH of DM, dyslipidemia, CKD. Pt is taking his ozempic. Last A1C was 6.7. He isn't taking his atorvastatin. Pt worried about his carotids. His brother just had surgery because his were blocked. Pt does need some labs. Pt is also due for colonoscopy. He is having some ongoing lower back pain. Review of patient's allergies indicates: No Known Allergies Current Outpatient Medications Medication Sig Dispense Refill ONETOUCH ULTRA TEST STRP Use up to four times a day as directed 100 Strip 11 ONETOUCH ULTRASOFT LANCETS MISC Use up to four times a day as directed 1 Box 11 aspirin 81 MG chewable tablet Take 1 Tab by mouth daily. 100 Tab 1 Ozempic (0.25 or 0.5 MG/DOSE) 2 MG/3ML Solution Pen-injector Inject 0.5 mg under the skin once a week. Atorvastatin Calcium 40 MG Oral Tablet (Lipitor) take one pill by mouth at bedtime (Patient not taking: Reported on 06/08/2022) 30 Tablet 5 No current facility-administered medications for this visit. Past Medical History: Diagnosis Date Acute pancreatitis 2004 BMI 37.0-37.9, adult Carpal tunnel syndrome right wrist Carpal tunnel syndrome of right wrist 04/01/2013 moderately severe on EMG DM type 2, goal A1c below 7 05/12/2006 random sugar 396 Dupuytren's contracture of both hands Metabolic syndrome Mixed dyslipidemia 07/07/2006 chol 212, hdl 38, ldl 153, trig 106 Need for hepatitis C screening test 04/26/2014 Hepatitis C negative Screening for HIV (human immunodeficiency virus) 08/04/2014 negative Sensorineural hearing loss, bilateral Stage 3a chronic kidney disease (HCC) 09/15/2020 EGFR 56.1 Tear of medial cartilage or meniscus of knee, current Social History Socioeconomic History Marital status: Spouse name: Not on file Number of children: 2 Years of education: Not on file Highest education level: Not on file Occupational History Employer: 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 Social Determinants of Health Financial Resource Strain: Not on file Food Insecurity: Not on file Transportation Needs: Not on file Social Connections: Unknown (12/12/2023) Social Connections How often do you feel lonely or isolated from those around you? (Adult - for ages 18 years and over): Not on file Housing Stability: Not on file O:Blood pressure 132/78, pulse 68, temperature 36.3 C (97.4 F), temperature source Tympanic, height 1.829 m (6'), weight 107.5 kg (237 lb), SpO2 96%. GENERAL: alert, healthy, and no distress NECK: supple, no adenopathy, no bruits, thyroid normal size, non-tender, without nodularity EYES: PERRLA, conjunctiva are pink and non-injected, sclera clear EARS: External ears normal, Canals clear, TM's Normal NOSE: no mucosal erythema, no mucosal edema, no purulent discharge OROPHARYNX: no exudate, no erythema, lips, buccal mucosa, and tongue normal, and mucous membranes are moist HEART: regular rate & rhythm, no murmur, and no gallops LUNGS: chest symmetric with normal AP diameter, no chest deformities noted, no chest wall tenderness, lungs clear to auscultation EXTREMITIES: no joint deformities, effusion, or inflammation, no edema A:Type 2 diabetes mellitus with hemoglobin A1c goal of less than 7.0% ([facility]) (Primary) - HEMOGLOBIN A1C; Future; Expected date: 03/20/2024 - BASIC METABOLIC PANEL; Future; Expected date: 03/20/2024 - CBC WITH WBC DIFFERENTIAL AND ANEMIA REFLEX WORKUP; Future; Expected date: 03/20/2024 - ALBUMIN / CREATININE RATIO, URINE; Future; Expected date: 03/20/2024 - PHOSPHORUS; Future; Expected date: 03/20/2024 Need for prophylactic vaccination and inoculation against influenza - INFLUENZA VAC., TRIVALENT, HD, PF, 65 AND ABOVE, 0.5 ML IM (FLUZONE HD) Stage 3a chronic kidney disease (HCC) DYSLIPIDEMIA, GOAL LDL BELOW 100 - LIPID PANEL WITH DIRECT LDL IF TG IS HIGH; Future; Expected date: 03/20/2024 Primary hypertension Sensorineural hearing loss, bilateral Screen for colon cancer - COLONOSCOPY, GI REFERRAL OP Chronic bilateral low back pain without sciatica - XR L SPINE COMPLETE Encounter for screening for stenosis of carotid artery - VASC DUPLEX CAROTID BILAT Erectile dysfunction, unspecified erectile dysfunction type - Sildenafil Citrate 100 MG Oral Tablet (Viagra); Take half tablet by mouth Other orders - COVID-19, MRNA-LNP, PF, 24-25, 30MCG/0.3ML, IM, 12YRS AND ABOVE ([employer]) Will check some labs. Will schedule carotid doppler, colonoscopy. Will xray lumbar spine. Any questions/problems, please call. If anything changes, worsens, develops new sx, please call [facility]. Continue current meds. Follow Up: Return if symptoms worsen or fail to improve. Edda Bush PA-C documented in this encounter Nursing Notes * Italia Mckinnon LPN - 03/20/2024 9:37 AM EDT Discuss diabetes- "get back on track with everything & one place" Is currently on Ozempic but supposed to be on Monjuaro? 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 Discuss cholesterol. Not taking meds. Colonoscopy? Discuss vaccines (shingles & TDAP will need to be done at pharmacy) documented in this encounter Plan of Treatment Upcoming Encounters Date Type Department Care Team (Late st Contact Info) Description 03/20/2024 1:15 PM EDT Imaging Radiology [address] [place] [address] Pending Results Name Type Priority Associated Diagnoses Date /Time XR L SPINE COMPLETE Medical Imaging Routine Chronic bilateral low back pain without sciatica 03/20/2024 10:17 AM EDT Scheduled Orders Name Type Priority Associated Diagnoses Orde r Schedule HEMOGLOBIN A1C Lab Routine Type 2 diabetes mellitus with hemoglobin A1c goal of less than 7.0% (HCC) Expected: 03/20/2024 (Approximate), Expires: 03/20/2025 LIPID PANEL WITH DIRECT LDL IF TG IS HIGH Lab Routine DYSLIPIDEMIA, GOAL LDL BELOW 100 Expected: 03/20/2024, Expires: 03/20/2025 BASIC METABOLIC PANEL Lab Routine Type 2 diabetes mellitus with hemoglobin A1c goal of less than 7.0% (HCC) Expected: 03/20/2024 (Approximate), Expires: 03/20/2025 CBC WITH WBC DIFFERENTIAL AND ANEMIA REFLEX WORKUP Lab Routine Type 2 diabetes mellitus with hemoglobin A1c goal of less than 7.0% (HCC) Expected: 03/20/2024 (Approximate), Expires: 03/20/2025 ALBUMIN / CREATININE RATIO, URINE Lab Routine Type 2 diabetes mellitus with hemoglobin A1c goal of less than 7.0% (HCC) Expected: 03/20/2024 (Approximate), Expires: 03/20/2025 PHOSPHORUS Lab Routine Type 2 diabetes mellitus with hemoglobin A1c goal of less than 7.0% (HCC) Expected: 03/20/2024 (Approximate), Expires: 03/20/2025 VASC DUPLEX CAROTID BILAT Medical Imaging Routine Encounter for screening for stenosis of carotid artery Ordered: 03/20/2024 Scheduled Procedures Name Priority Associated Diagnoses Date/Ti me COLONOSCOPY FLEXIBLE PROXIMAL DIAGNOSTIC Recall History of colon polyps Scheduled Referrals Name Type Priority Associated Diagnoses Orde r Schedule COLONOSCOPY, GI REFERRAL OP Referral Within 10 days (routine) Screen for colon cancer Ordered: 03/20/2024 Health Maintenance Due Date Last Done Comments Cologuard 1997 Sigmoidoscopy 1997 Fecal Occult Blood Test 08/28/2011 08/27/2010, 02/24 Zoster Vaccines (2 of 3) 04/23/2013 02/26/2013 DTap/Tdap Vaccines (2 - Td or Tdap) 12/04/2017 12/05/2007 Depression Screening 03/17/2021 03/17/2020 Albumin/Creatinine Ratio 07/21/2022 022, 09/15/2020, 04/27/2016, Additional history exists CKD HGB USE SMARTSET 14392 07/21/202207/21, 08/14/2010, 07/08/2006 CKD PHOS USE SMARTSET 95877 07/21/2022 07/21/2021 Diabetic Eye Exam 01/18/2023 01/18/2022, , 11/15/2016, Additional history exists Diabetic Foot Exam 01/18/2023 01/18/2022, 0 09/15/2020, 03/06/2019, Additional history exists GFR 03/15/2023 09/12/2022, 1107/2021, 01/14/2022, Additional history exists Colonoscopy 06/10/2023 06/10/2022, [...] hemoglobin A1c goal of less than 7.0% (HCC)- Primary Need for prophylactic vaccination and inoculation against influenza Stage 3a chronic kidney disease (HCC) DYSLIPIDEMIA, GOAL LDL BELOW 100 Other and unspecified hyperlipidemia Primary hypertension Unspecified essential hypertension Sensorineural hearing loss, bilateral Screen for colon cancer Special screening for malignant neoplasms, colon Chronic bilateral low back pain without sciatica Encounter for screening for stenosis of carotid artery Erectile dysfunction, unspecified erectile dysfunction type documented in this encounter
--- OUTSIDE RECORDS SUMMARY | 2024-06-13 03:17 | External Medical Summary ---
Author Name Unknown Address Unknown Organization [id number]:LABORATORY [facility] [place] - [address] [place] [address] Laboratory Report Ordering Provider Test Date Status LETY GREENBERG 03/20/2024 11:12:57 Final Observation Date Value Abnormality Reference (Units ) Status WBC, Total 03/20/2024 11:12:57 7.31 4.00-10.8 0 (K/uL) Final RBC 03/20/2024 11:12:57 5.43 4.50-5.25 (M/uL) Final Hemoglobin 03/20/2024 11:12:57 16.4 14.0-16.8 (g/dL) Final Anemia reflex testing trigge rs on a HGB < 12.0 for Females and HGB < 13.0 for Males in accordance with the WHO Anemia Guidelines
Anemia reflex testing triggers on a HGB < 12.0 for Females and HGB < 13.0 for Males in accordance with the WHO Anemia Guidelines HCT 03/20/2024 11:12:57 48.5 Above hi gh normal 40.0-48.4 (%) Final MCV 03/20/2024 11:12:57 89.3 82.0-99.5 (fL) Final MCH 03/20/2024 11:12:57 30.2 27.0-34.0 (pg) Final MCHC 03/20/2024 11:12:57 33.8 32.0-36.0 (g/dL) Final RDW 03/20/2024 11:12:57 12.6 11.5-15.5 (%) Final Platelets 03/20/2024 11:12:57 196 140-400 (K /uL) Final MPV 03/20/2024 11:12:57 9.9 6.6-11.1 ( fL) Final Nucleated erythrocytes/100 leukocytes [Ratio] in Blood by Automated count 03/20/2024 11:12:57 0 <=0 (/100 WBCs) Final Performing Location LABORATORY [facility] [place] - [address] [facility] [address]
--- OUTSIDE RECORDS SUMMARY | 2024-06-13 03:17 | External Medical Summary ---
Author Name Unknown Address Unknown Organization [id number]:LABORATORY [facility] [place] [facility] [address] [place] [address] Laboratory Report Ordering Provider Test Date Status LETY GREENBERG 03/20/2024 11:12:57 Final Normal: <30 mg/g creatinine< br/>High: 30-300 mg/g creatinine
Very High: >300 mg/g creatinine
Nephrotic: >2200 mg/g creatinine Observation Date Value Abnormality Reference (Units ) Status Albumin, Urine 03/20/2024 11:12:57 10.00 (mg/dL) Final Creatinine, Urine 03/20/2024 11:12:57 129 (mg/dL) Final Albumin/Creatinine [Mass Ratio] in Urine 03/20/2024 11:12:57 78 Above high normal <30 (mg/g Creat) Final Performing Location LABORATORY [facility] [place] - [facility] [place] [address]
--- OUTSIDE RECORDS SUMMARY | 2024-06-13 03:17 | External Medical Summary ---
Author Name Unknown Address Unknown Organization [id number]:LABORATORY [facility] [place] - [address] [place] [address] Laboratory Report Ordering Provider Test Date Status LETY GREENBERG 03/20/2024 11:12:57 Final Observation Date Value Abnormality Reference (Units ) Status SYNC LEUKOCYTES IN BLOOD BY AUTOMATED COUNT 03/20/2024 11:12:57 7.31 4.00-10.80 (K/uL) Final Segs 03/20/2024 11:12:57 57.6 40.0-75.0 (%) Final Lymphs % 03/20/2024 11:12:57 30.5 18.0-42.0 (%) Final Monos 03/20/2024 11:12:57 10.0 1.0-11.0 (%) Final Eosinophils 03/20/2024 11:12:57 1.1 0.0-6.0 (%) Final Basos 03/20/2024 11:12:57 0.4 0.0-2.0 (%) Final Immature Granulocyte, Percent 03/20/2024 11:12:57 0.4 0.0-2.0 (%) Final Absolute Segs 03/20/2024 11:12:57 4.21 1.80-7.70 (K/uL) Final Lymphs, absolute 03/20/2024 11:12:57 2.23 1.00-4.80 (K/ul) Final Monos, Abs 03/20/2024 11:12:57 0.73 0.00-1.10 (K/uL) Final Eos, Abs 03/20/2024 11:12:57 0.08 0.00-0.70 (K/uL) Final Basos, Abs 03/20/2024 11:12:57 0.03 0.00-0.20 (K/uL) Final Immature Granulocytes, Number 03/20/2024 11:12:57 0.03 0.00-0.20 (K/uL) Final Performing Location LABORATORY [facility] [place] - [address] [facility] [address]
--- OUTSIDE RECORDS SUMMARY | 2024-06-13 03:17 | External Medical Summary | Summary of Care ---
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 Name Role Phone Unavailable Primary Care Provider Unavailabl e Reason for Visit * Reason Onset Date Comments MyCode - Took Form To Consider 03/20/2024 Encounter Details Date Type Department Care Team (Late st Contact Info) Description 03/20/2024 Orders Only Outcomes Research Department [address] [place] [address] Cindy Fabian CHRA MyCode Nonconsent Documentation Allergies No known active allergiesdocumented as of [...] on file documented as of this encounter Progress Notes * Cindy Fabian CHRA - 03/20/2024 10:17 AM EDT MyCode Nonconsent Documentation Quinton Day was approached in the clinic regarding participation in the MyCode Project and did not consent. documented in this encounter Plan of Treatment Upcoming Encounters Date Type Department Care Team (Late st Contact Info) Description 03/20/2024 1:15 PM EDT Imaging Radiology [address] [place] [id number] Scheduled Procedures Name Priority Associated Diagnoses Date/Ti [...] Additional history exists CKD HGB USE SMARTSET 15438 07/21/202207/21, 08/14/2010, 07/08/2006 CKD PHOS USE SMARTSET 29696 07/21/2022 07/21/2021 Diabetic Eye Exam 01/18/2023 01/18/2022, , 11/15/2016, Additional history exists Diabetic Foot Exam 01/18/2023 01/18/2022, 0 09/15/2020, 03/06/2019, Additional history exists GFR 03/15/2023 09/12/2022, 07/2021, 01/14/2022, Additional history exists Colonoscopy 06/10/2023 [...]
--- OUTSIDE RECORDS SUMMARY | 2024-06-13 03:17 | External Medical Summary ---
Author Name Unknown Address Unknown Organization K01:LABORATORY [facility] - [address] [place] [address] Laboratory Report Ordering Provider Test Date Status LETY GREENBERG 03/20/2024 11:12:57 Final Observation Date Value Abnormality Reference (Units ) Status Phosphate 03/20/2024 11:12:57 3.4 2.5-4.8 (m g/dL) Final Performing Location LABORATORY [facility] - [address] [place] [address]
--- OUTSIDE RECORDS SUMMARY | 2024-06-13 03:17 | External Medical Summary ---
Author Name Unknown Address Unknown Organization [id number]:[facility] [place] [address] [place] [address] Laboratory Report Ordering Provider Test Date Status LETY GREENBERG 03/20/2024 11:12:57 Final Observation Date Value Abnormality Reference (Units ) Status BUN 03/20/2024 11:12:57 16 6-20 (mg/dL) Final Creatinine 03/20/2024 11:12:57 1.2 0.6-1.2 (mg/dL) Final Glomerular filtration rate/1.73 sq M.predicted [Volume Rate/Area] in Serum, Plasma or Blood by Creatinine-based formula (CKD-EPI) 03/20/2024 11:12:57 65 >=60 (mL/min) Final eGFR is calculated based on the CKD-EPI 2020 equation. Sodium 03/20/2024 11:12:57 138 135-146 (m mol/L) Final Potassium 03/20/2024 11:12:57 4.6 3.5-5.1 (m mol/L) Final Cl 03/20/2024 11:12:57 102 98-107 (mm ol/L) Final CO2 03/20/2024 11:12:57 24 22-32 (mmo l/L) Final Anion gap 03/20/2024 11:12:57 12 7-15 (mmol /L) Final Glucose 03/20/2024 11:12:57 126 Above high normal 70 -120 (mg/dL) Final Calcium 03/20/2024 11:12:57 9.7 8.4-10.2 ( mg/dL) Final Performing Location LAB[facility]ORY [facility] [place] [address] [place] [address]
--- OUTSIDE RECORDS SUMMARY | 2024-06-13 03:17 | External Medical Summary ---
Author Name Unknown Address Unknown Organization [id number]:[facility] [place] [address] [facility] [place] [address] Laboratory Report Ordering Provider Test Date Status LETY GREENBERG 03/20/2024 11:12:57 Final Observation Date Value Abnormality Reference (Units ) Status Triglyceride 03/20/2024 11:12:57 167 <=174 ( mg/dL) Final Triglyceride Reference Range s (mg/dL):
<150 Acceptable
150-174 Borderline high
175-499 High
>=500 Very high Cholesterol 03/20/2024 11:12:57 211 Above high normal <200 (mg/dL) Final Total Cholesterol Reference Ranges (mg/dL):
<200 Desirable
200-239 Borderline high
>=240 High HDL 03/20/2024 11:12:57 34 Below low normal >39 (mg/dL) Final HDL Cholesterol Reference Ra nges (mg/dL):
>=60 High (Desirable)
<50 Low (Undesirable) For Females
<40 Low (Undesirable) For Males NON-HDL CHOLESTEROL 03/20/2024 11:12:57 177 Above high normal <=159 (mg/dL) Final Non-HDL Cholesterol Referenc e Range (mg/dL):
<100 Target level for high risk ASCVD patient
<130 Optimal for general population
130-159 Near optimal for general population
160-189 Borderline High
190-219 High
>=220 Very High LDL, (calculated) 03/20/2024 11:12:57 144 Above high n ormal <=129 (mg/dL) Final LDL Cholesterol Reference Ra nges (mg/dL):
<70 Target level for high risk ASCVD patient
<100 Optimal for general population
100-129 Near optimal for general population
130-159 Borderline high
160-189 High
>=190 Very high Performing Location LAB[facility] [place] - [address] [facility] [address]
--- OUTSIDE RECORDS SUMMARY | 2024-06-13 03:17 | External Medical Summary | Summary of Care ---
Author Name Unknown Organization [facility] Address [address] [facility] [place] [address] Phone [phone] Care Team Providers Care Bottle Carrier Name Role Phone Unavailable Primary Care Provider Unavailabl e Reason for Visit * Reason Comments Outpatient Testing Encounter Details Date Type Department Care Team (Late st Contact Info) Description 03/20/2024 10:20 AM EDT Laboratory Laboratory [address] [place] [phone] [place] [address] Arrived Allergies No known active allergiesdocumented as of [...] as of this encounter Plan of Treatment Scheduled Procedures [...] Additional history exists CKD HGB USE SMARTSET 15649 07/21/202207/21, 08/14/2010, 07/08/2006 CKD PHOS USE SMARTSET 98678 07/21/2022 07/21/2021 Diabetic Eye Exam 01/18/2023 01/18/2022, [...]
[2024-06-13 04:00] VITALS: O2SAT 97
[2024-06-13 06:28] LABS: Hematocrit (blood only) 45.2 % (42.0-52.0); Hemoglobin 15.8 g/dl (14.0-18.0); Mean Corpuscular Volume 85.8 fL (80.0-100.0); Mean Platelet Volume 9.4 fL (9.4-12.4); Platelet Count 177 K/uL (130-400); RDW Coefficient of Variation 12.6 % (11.5-14.5); RDW Standard Deviation 39.2 fL (36.4-46.3); Red Blood Count 5.27 M/uL (4.70-6.10); White Blood Count 6.55 K/ul (4.8-10.8)
[2024-06-13 06:49] LABS: BUN Creatinine Ratio 15.5 (10-20); Calcium 8.7 mg/dl (8.6-10.3); Chol HDL Ratio 4.3 (0-5); Creatinine Clr Calc Pharmacy 81.7 ml/min; Magnesium 1.8 mg/dl (1.7-2.4); Phosphorus 3.3 mg/dl (2.5-4.9); Potassium 4.1 mmol/L (3.5-5.1)
[2024-06-13 07:46] LABS: Estimated Average Glucose 174 mg/dl; Hemoglobin A1C 7.7 % (4.5-5.6)
[2024-06-13] MEDS: amLODIPine BESYLATE 5 MG TAB PO SCH (10:27)
[2024-06-13] MEDS: ASPIRIN 81 MG ECTAB PO SCH (10:27)
[2024-06-13] MEDS: ATORVASTATIN 40 MG TAB PO SCH (10:27)
[2024-06-13 12:01] VITALS: BP 167/83; RESP 18; TEMP 97.9
--- NOTE | 2024-06-13 14:35 | Neurology Consultation ---
Date of Consultation June 13, 2024 Assessment & Plan (1) Visual disturbance: Quinton Day presents with a L altitudinal field defect in the L eye. Likely BRAO given the description. No headache or eye pain making cavernous thrombosis unlikely. Agree with follow-up in opthalmology. Okay to continue aspirin/plavix for 21 days, then back to aspirin. Agree with HbA1c goal of <7. He can follow- up with neurology at his discretion. Telehealth Consultation Telehealth Information Telehealth Information: I performed this visit using a real-time telehealth connection between my location and the patients location ([facility]). After connecting through interactive tele-video, patient was identified by name and date of and/or wristband check.Patient (or authorized healthcare repre sentative) was informed that this was a telemedicine visit and it was being conducted confidentially over secure lines. My office door was closed and no one else was present in the room with me.Patient (or authorized healthcare representative government relations) provided consent to proceed with the visit, expressed an understanding of privacy and security of the telemedicine visit, and gave permission to have a hospital representative government relations in the room in order to assist with the visit and to conduct portions of the visit, as needed. I informed the patient (or authorized healthcare representative government relations) that I reviewed their record and presented the opportunity for them to ask any questions regarding the visit today. The patient agreed to participate. History of Present Illness Reason for Consultation: Optic nerve edema Requesting Physician: Dr. Hollis Attending Physician: Jeffery Hollis MD History of Present Illness Quinton Day presented to [facility] ED yesterday after being sent by his eye doctor for vision changes in his L eye. He describes difficulty moving the L eye as if it is sluggish and drooping of his L eyelid as well as a superior altitudinal defect of the L eye. They noted optic nerve edema as well on fundoscopic exam. Today he feels that the eye symptoms are improved and his vision is less obstructed. 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 He has an appointment with an opthalmologist monday. Allergies Allergy/AdvReac Type Severity Reaction Status Date / Time No Known Allergies Allergy Verified 06/12/24 14:47 Home Medications Medication Instructions Recorded Confirmed Type aspirin 81 mg capsule 81 mg PO DAILY 06/12/24 06/12/24 History atorvastatin 40 mg tablet 40 mg PO DAILY 06/12/24 06/12/24 History sildenafil 100 mg tablet 50 mg PO DAILY PRN Erectile 06/12/24 06/12/24 History Dysfunction tirzepatide 5 mg/0.5 mL 5 mg subcut .WEEKLY 06/12/24 06/12/24 History subcutaneous pen injector (Mounjaro) amlodipine 5 mg tablet (Norvasc) 5 mg PO QAM #30 tabs 06/13/24 Rx Patient History Medical History Type II diabetes mellitus Hyperlipidemia HTN (hypertension) Carpal tunnel syndrome, left Social History Smoking Status: Never smoker Hx Alcohol Use: Yes Alcohol type: beer Hx Substance Use: No Preferred Language: Greek Communication Ability: Effective Electrophysiology Tech Required: No Beliefs That Will Affect Care: None Current Living Situation: Family Feels Safe at Home: Yes Safety Concerns: Feels Safe At This Time Assistive Devices: None Assistive Devices Comment: upper partial at home Review of Systems +L eye vision change Physical Exam Neuro exam: Awake and alert, speech fluent, no facial asymmetry, no ptosis appreciated, full versions, no disconjugate gaze. Strength is antigravity throughout. Results & Data Vital Signs (Past 12 Hours) Vital Signs Temp Pulse Pulse Resp BP BP Pulse Ox 06/13/24 14:13 81 06/13/24 12:00 36.6 C 82 18 167/83 H 97 06/13/24 08:03 75 06/13/24 07:53 36.4 C L 74 16 157/85 H 97 06/13/24 03:21 36.4 C L 83 16 137/79 97 O2 Del Method 06/13/24 14:13 06/13/24 12:00 Room Air 06/13/24 08:03 06/13/24 07:53 Room Air 06/13/24 03:21 Room Air Laboratory Results Abnormal lab results 06/12/24 06/12/24 06/13/24 Range/Units 14:39 21:42 05:51 MPV 9.1 L (9.4-12.4) fL Burt # (Auto) 0.65 H (0.11-0.59) K/uL Glucose 162 H 141 H (70-99(Fasting)) mg/dl POC Glucose 115 H (70-99) mg/dl Hemoglobin A1c 7.7 H (4.5-5.6) % 06/13/24 06/13/24 Range/Units 08:04 12:11 MPV (9.4-12.4) fL Burt # (Auto) (0.11-0.59) K/uL Glucose (70-99(Fasting)) mg/dl POC Glucose 130 H 190 H (70-99) mg/dl Hemoglobin A1c (4.5-5.6) % Diagnostic Findings Head CTA 06/12/24 14:47 CTA ANGIOGRAPHY OF THE HEAD CLINICAL HISTORY: Vision loss, left optic nerve swelling COMPARISON STUDY: Head CT performed earlier today. TECHNIQUE: Helical axial images of the head were obtained following uneventful intravenous administration of 115 cc of Optiray. Sagittal and coronal reconstructions were viewed as well as maximal intensity projections on an independent 3-D workstation. Automated exposure control was utilized for the study. A dose lowering technique was utilized adhering to the principles of ALARA. FINDINGS: No acute intracranial hemorrhage, midline shift or mass effect is present. Ventricular system is normal. Basal cisterns are patent. There are no extra axial collections. Moderate to severe multifocal stenoses within the intracranial circulation are present. There is moderate stenosis of the right supraclinoid ICA due to mixed calcified and noncalcified plaque. There is mild stenosis of the left supraclinoid ICA. There is moderate to severe stenosis at the origin of the left posterior cerebral artery as well as severe stenoses within the left posterior inferior cerebellar artery. Moderate stenosis of the intracranial portion of the left vertebral artery due to calcified plaque is noted. No large vessel occlusion is present. There is no intracranial aneurysm. IMPRESSION: 1. Moderate to severe multifocal stenoses within the intracranial vessels, as detailed above. These are most pronounced within the left posterior inferior cerebellar artery. 2. No large vessel occlusion. No intracranial aneurysm. ACT 112: Negative or not required by law. Electronically signed by: Kamlesh Huynh M.D. 06/12/2024 4:13 PM Neck CTA 06/12/24 14:47 CT angio neck with con CLINICAL HISTORY: 74 years-old Male with Vision loss, left optic nerve swelling. Acute stroke like symptoms with left-sided vision loss COMPARISON STUDY: Head CT of same day TECHNIQUE: Following the IV administration of 115 of Optiray, CT angiogram of the neck was performed from the aortic arch to the skull base. Images are reviewed in the axial, sagittal, and coronal planes. 3-D MIPS images are created and assessed. IV contrast was administered without complication. All measurements were calculated based on NASCET criteria. A dose lowering technique was utilized adhering to the principles of ALARA. CT DOSE: 477.86 mGy.cm FINDINGS: Three-vessel morphology with vascular arch. Patency of the innominate and imaged subclavian arteries. There is atherosclerotic plaque of the carotid bulbs causin g no significant stenosis. The common and and internal carotid arteries are patent. Dominant left vertebral artery. There is atherosclerosis involving the V4 segment left vertebral artery causing moderate stenosis. The developmentally diminutive right vertebral artery is patent, also with atherosclerosis in the V4 segment causing mild stenosis. Lung apices are clear without pneumothorax. Bleb formation of the left lung apex. Atrophy of the submandibular glands. No acute fracture. 2 cm hypodense nodule of the inferior thyroid isthmus with marginal calcifications. IMPRESSION:Atherosclerosis without aneurysm, dissection, high-grade stenosis or arterial occlusion. ACT 112: Negative or not required by law. The above report was generated using voice recognition software. It may contain grammatical, syntax or spelling errors. Electronically signed by: Phoenix Post M.D. 06/12/2024 4:02 PM Brain MRI 06/12/24 17:52 Exam(s): MRI HEAD W/WO Contrast IV Amt: 10.8 CC GADAVIST EXAM: MR Head Without and With Intravenous Contrast CLINICAL HISTORY: Reason for exam: Visual disturbance. TECHNIQUE: Magnetic resonance images of the head/brain without and with intravenous contrast in multiple planes. CONTRAST: Patient received 10.8 CC GADAVIST of IV contrast COMPARISON: No relevant prior studies available. FINDINGS: Brain: Mild nonspecific white matter changes. The flow voids at the base of the brain are intact. No mass. No hemorrhage. No acute infarct. No evidence of abnormal enhancement. The dural venous sinuses are patent. Ventricles: Unremarkable. No ventriculomegaly. Bones/joints: Unremarkable. No acute fracture. Sinuses: Unremarkable as visualized. No acute sinusitis. Mastoid air cells: Unremarkable as visualized. No mastoid effusion. Orbits: Unremarkable as visualized. IMPRESSION: No evidence for acute intracranial pathology. Mild nonspecific white matter changes. Electronically signed by: Camila Cagle MD 06/12/24 22:36 PM Orbit MRI 06/12/24 17:52 Exam(s): MRI ORBITS IV Amt: 10.8cc gadavist EXAM: MR Orbits With Intravenous Contrast CLINICAL HISTORY: Reason for exam: Visual disturbance. TECHNIQUE: Multiplanar magnetic resonance images of the orbits with intravenous contrast. CONTRAST: Patient received 10.8cc gadavist of IV contrast COMPARISON: Prior head CT from June 12, 2024.. FINDINGS: Orbits: Unremarkable. Sinuses: Chronic ethmoid sinusitis. No air-fluid levels. Bones/joints: Unremarkable. No acute fracture. Soft tissues: Unremarkable. IMPRESSION: Negative MRI of the orbits. Electronically signed by: Camila Cagle MD 06/12/24 22:52 PM
--- NOTE | 2024-06-13 14:46 | Discharge Summary ---
Date of Service June 13, 2024 Admission HPI Per Admitting Provider Quinton Day is a 74-year-old male with past medical history significant for HTN, HLD, DM type II, CKD stage III and bilateral sensorineural hearing loss who presented to the ED on 06/12/2024 via referral from [facility] in [place], [place] for further evaluation of vision loss in the superior aspect of his left eye. History obtained from the patient, documentation provided by [facility] and associated chart review. Patient seen at bedside in the ED with Dr. Alexandre. Patient is somewhat of a poor historian. Patient has been experiencing vision loss in the superior aspect of his left eye for approximately the last week or so per his account. Patient was seen at [facility] earlier today and was noted to have optic nerve edema of his left eye during his examination therefore he was referred to the ED for stat head CT as well as MRIs of both the brain and orbits to rule out any compressive lesions. It was also recommended that the patient undergo a complete stroke workup per the electric wheelchair repairer who saw him in the clinic, Dr. Wells. Patient reports that he typically does not wear glasses however he does use reading glasses or "cheaters" intermittently. He denies any visual disturbances in the right eye. He did notice however that his vision appeared to be somewhat blurry in both eyes during our conversation however he had just had his eyes dilated in the clinic prior to arrival. Patient actually drove himself to the ED. He reports that he has been feeling a little bit unsteady on his feet over the past month or so but otherwise offer no other acute complaints. No prior smoking history. No known history of prior strokes. Principal Diagnosis Acute CVAruled out Discharge Data Allergies Allergy/AdvReac Type Severity Reaction Status Date / Time No Known Allergies Allergy Verified 06/12/24 14:47 Consultations 06/12/24 17:25 ED Decision to Admit Stat 06/12/24 18:39 Consult Neurology Routine Ordered Studies 06/12/24 13:55 CT head/brain wo con Stat 06/12/24 14:47 CTA head w con [CT angio head w con] Stat CTA neck with con [CT angio neck with con] Stat 06/12/24 17:52 MRI Brain [MR brain wo/w con] Urgent MRI Orbit [MR orbit wo/w con] Urgent Hospital Course (1) Visual disturbance: (2) Hypertensive urgency: Plan Quinton Day is a 74-year-old male with past medical history significant for HTN, HLD, DM type II, CKD stage III and bilateral sensorineural hearing loss who presented to the ED on 06/12/2024 via referral from [facility] in [place], [place] for further evaluation of vision loss in the superior aspect of his left eye. Visual Disturbance of Left Eye, C/F Possible Subacute CVA: Patient has been experiencing vision loss in the superior aspect of his left eye for approximately the last week or so per his account. Patient was seen at [facility] on the day of admisison and was noted to have optic nerve edema of his left eye during his examination therefore he was referred to the ED for stat head CT as well as MRIs of both the brain and orbits to rule out any compressive lesions. I Head CT with no evidence of acute intracranial findings. Head CTA noted moderate to severe multifocal stenoses within the intracranial vessels, most pronounced within the left posterior inferior cerebellar artery. Neck CTA revealed atherosclerotic plaque of the carotid bulbs causing no significant stenosis, atherosclerosis involving the V4 segment of the left vertebral artery causing moderate stenosis and atherosclerosis within the V4 segment of the right vertebral artery causing mild stenosis. MRIs of the brain and orbits didn't show any acute findings. Neurology consultation was done; patient was recommended to be on aspirin and Plavix for 21 days. Patient already has appointment set up as outpatient with retina specialist in next few days. Patient was discharged home. Hypertensive Urgency: Started on amlodipine at discharge. Recommended home blood pressure monitoring which patient agreed. Please note the above document was generated using voice recognition software. It may contain grammatical, syntax or spelling errors. Any formal questions or concerns about the content, text or information contained within the body of this dictation should be directly addressed to the provider for clarification Total Time Total Time Spent Total Time Spent (In Minutes): 45 Total Time Includes: Examination of the Patient, Discharge Planning, Medication Reconciliation, Communication With Other Providers and Other Discharge Plan Discharge Items Patient Disposition: Home - Self-Care Reason For Visit: VISUAL DISTURBANCE Discharge Diagnosis: Left-sided vision loss Condition on Discharge: Good Activity: Resume your previous activity Non-emergency contact: Primary Care Provider Call non-emergency contact if: you have any medication questions and your symptoms worsen Follow-up/Referrals: Nate Crowder MD [Primary Care Provider] - Diet: Regular Addtl Attending Provider Instructions: You were admitted to the hospital for evaluation of vision loss on your left eye. Your evaluated for stroke which was negative. He is follow-up with the retina specialist as scheduled. Your blood pressure was found to be be on the higher side during the hospitalization. You are prescribed amlodipine 5 mg to be taken once a day. Please measure your blood pressure daily at home. An appointment with your primary care doctor will be made for you for sometime next week. Take Plavix for 21 days. Pending Studies at Discharge: No Stand-Alone Forms: My [facility] [employer], Smoking Cessation Medications and DC Order Prescriptions: New amlodipine [Norvasc] 5 mg Tablet 5 mg PO QAM Qty: 30 0RF clopidogrel [Plavix] 75 mg tablet 75 mg PO DAILY 21 Days Qty: 21 0RF Continued sildenafil 100 mg tablet 50 mg PO DAILY PRN (Reason: Erectile Dysfunction) Rx Instructions: Takes prior to sexual intercourse. Mounjaro 5 mg/0.5 mL pen injector 5 mg SUBCUT .WEEKLY atorvastatin 40 mg Tablet 40 mg PO DAILY aspirin 81 mg Capsule 81 mg PO DAILY Discharge Orders: Discharge Order (Routine); Ordered 06/13/24 Ordered By: eJffery Kang/Other Patient Handouts: Managing Type 2 Diabetes Admission Data Admit Date/Time: 06/12/24 17:42 Attending Provider: Jeffery Hollis Admit Provider: Gabbie Alexandre I. Primary Care Provider: Nate Crowder Other Providers: Juan M Lora; Gabbie Alexandre I. Other Interventions: Discharge Summary Assessment (RN) Last Done: 06/13/24 15:38
[2024-06-13 15:38] VITALS: PULSE 82
--- NOTE | 2024-06-14 03:05 | Electrocardiogram Report ---
Test Reason : Blood Pressure : */* mmHG Vent. Rate : 74 BPM Atrial Rate : 74 BPM P-R Int : 146 ms QRS Dur : 84 ms QT Int : 360 ms P-R-T Axes : * -13 58 degrees QTcB Int : 399 ms Ectopic atrial rhythm Inferior infarct , age undetermined Abnormal ECG When compared with ECG of 07-Nov-2011 10:25, Ectopic atrial rhythm has replaced Sinus rhythm Confirmed by Lino Vallejo ([id number]) on 06/14/2024 3:04:46 AM Referred By: REFERRED SELF Confirmed By: Lino Vallejo
== END 2024-06-13 16:09 | disposition home or self-care (01) | DRG 125 ==
LOC: ED 13:41 → EDINP 17:42 → INTOOBSV 17:42 → SUATTDRO 17:42 → 2N 20:01